=== PATIENT | female | born 1995 | race Caucasian/White ===

== ENCOUNTER 2024-04-17 12:14 | Outpatient (CLI) | payer OTHER, SELFPAY ==
--- NOTE | ~2024-04-17 | XR_ITS ---
EXAMINATION: XR chest 2V 04/17/2024 12:38 INDICATION: Cough PROCEDURE: 2 view chest COMPARISON: 02/08/2018 FINDINGS: The lungs are clear. The cardiomediastinal silhouette is within normal limits. There are no pleural effusions. There is no pneumothorax suspected. IMPRESSION: 1: NO ACUTE CARDIOPULMONARY DISEASE. Reviewed, dictated and finalized at location B.
--- NOTE | ~2024-04-17 | XR_ITS ---
Lumbosacral Spine: AP and lateral views Clinical History: Pain Findings: The normal lordotic curve is maintained. No acute fracture or subluxation seen. There is fariha mbosacral posterior fusion from L5 through S3. There is extensive facet arthropathy and lumbar spine. Disc spaces are preserved. The sacroiliac joints are normally outlined. Impression: Postoperative fusion at the lumbosacral junction region, as above. Facet arthropathy. Reviewed, dictated and finalized at location . Impression: Postoperative fusion at the lumbosacral junction region, as above. Facet arthropathy.
[2024-04-17 13:08] LABS: Add Urine Microscopic? NO; Appearance Urine Clear (Clear); Bilirubin Urine Negative (Negative); Blood Urine Negative (Negative); Color Urine Yellow (Yellow); Glucose Urine UA Negative (Negative); Ketones Urine Negative (Negative); Leukocyte Esterase Ur Negative LEU/UL (Negative); Nitrate Urine Negative (Negative); Protein Urine Negative (Negative); Specific Grav Ur 1.008 (1.001-1.035); Urobilinogen Urine 0.2 mg/dL (<2.0); pH Urine 7.5 (5.0-9.0)
[2024-04-17 13:15] LABS: Hematocrit 43.4 % (37.0-47.0); Hemoglobin 13.9 g/dL (12.0-15.0); Mean Corpuscular Hemoglobin 30.2 pg (26-34); Mean Corpuscular Volume 94.1 fl (80-100); Mean Platelet Volume 10.2 fl (7.4-10.4); Platelet Count Result 240 k/mm3 (150-375); Red Blood Count 4.61 M/mm3 (4.2-5.4); Red Cell Distribution Width 13.7 % (11.5-14.5); White Blood Count 11.3 K/mm3 (4.5-10.0)
[2024-04-17 13:48] LABS: Creatinine Urine 34.7 mg/dL
[2024-04-17 13:55] LABS: MALB Creatinine Ratio < 17.3 mg/g (0-30); Microalbumin Urine Random < 6.0 mg/L (0-16.7)
[2024-04-17 14:06] LABS: Free T4 Free Thyroxine 1.02 ng/mL (0.78-2.19); Vitamin D 25 Hydroxy 29.8 ng/mL
[2024-04-17 14:15] LABS: Erythrocyte Sedimentation Rate 2 mm/hr (0-20)
[2024-04-17 14:32] LABS: Alanine Aminotransferase 18 U/L (6-35); Albumin Level 4.8 g/dL (3.5-5.1); Alkaline Phosphatase 62 U/L (38-126); Anion Gap 8 mmol/L (4-12); Aspartate Amino Transferase 22 U/L (14-36); Bilirubin,Total 0.5 mg/dL (0.2-1.3); Blood Urea Nitrogen 13 mg/dL (7-17); Calcium 9.6 mg/dL (8.4-10.2); Carbon Dioxide 30 mmol/L (22-30); Chloride 101 mmol/L (98-107); Cholesterol 143 mg/dL (0-200); Estimated Glomerular Filt Rate > 60; Glucose 96 mg/dL (65-110); HDL Direct 84 mg/dL; Potassium 3.9 mmol/L (3.4-5.0); Sodium 139 mmol/L (137-145); Triglycerides 61 mg/dL (<150)
[2024-04-17 14:43] LABS: LDL Cholesterol Direct 42 mg/dL
[2024-04-17 14:46] LABS: Rheumatoid Factor < 12.0 IU/ML (<12)
[2024-04-17 15:35] LABS: Folic Acid 19.7 ng/mL (2.76->20)
[2024-04-17 15:53] LABS: Hemoglobin A1C 4.9 % (<5.7)
== END 2024-04-17 12:15 | disposition home or self-care (01) ==
LOC: ANHIMG 12:18
PROVIDERS: PCP Registered Nurse; Visit Provider Emergency Medicine
DX: M54.50 Low back pain, unspecified (principal)
CPT/HCPCS: 36415; 71046; 72100; 80053; 80061; 81003; 82043; 82306; 82607; 82746; 83036; 84439; 84443; 85027; 85652; 86038; 86039; 86430

== ENCOUNTER 2024-05-19 11:09 | Outpatient (CLI) | payer OTHER, SELFPAY ==
[2024-05-19 11:46] LABS: Hemoglobin 12.8 g/dL (12.0-15.0); Mean Corpuscular HGB Conc 32.8 g/dl (32-36); Mean Corpuscular Hemoglobin 30.5 pg (26-34); Mean Corpuscular Volume 93.1 fl (80-100); Platelet Count Result 215 k/mm3 (150-375); Red Blood Count 4.19 M/mm3 (4.2-5.4); Red Cell Distribution Width 13.8 % (11.5-14.5); White Blood Count 8.2 K/mm3 (4.5-10.0)
== END 2024-05-19 11:10 | disposition home or self-care (01) ==
PROVIDERS: PCP Registered Nurse; Visit Provider Emergency Medicine
DX: D72.829 Elevated white blood cell count, unspecified (principal)
CPT/HCPCS: 36415; 85027

== ENCOUNTER 2025-02-25 19:34 | Emergency (ER) | payer OTHER, SELFPAY ==
--- NOTE | ~2025-02-25 | US_ITS ---
EXAMINATION: US OB <= 14 weeks fetus DATE: 02/25/2025 21:39 CDT INDICATION: Abdominal pain COMPARISON: None TECHNIQUE: Real-time transabdominal obstetric ultrasound. FINDINGS: 3 para 2 Estimated date of delivery by last menstrual period is 10/29/2025 The uterus measures 12.8 x 9.4 x 9.4 cm. A gestational sac is identified within the uterus. A pole is identified, with a crown-rump length that measures 3.6 cm, corresponding to an approx imate gestational age of 10 weeks and 4 days. cardiac activity is identified at a rate of 159 bpm. The right ovary is unremarkable in size measuring 3.5 x 1.9 x 2.3 cm. Corpus luteal cyst within the right ovary measuring 12 x 16 x 12 mm. The left ovary is unremarkable in echogenicity and size measuring 2.4 x 1.4 x 1.9 cm. Estimated date of delivery by ultrasound is 09/19/2025 IMPRESSION: Single intrauterine gestation with an approximate gestational age of 10 weeks and 4 days, with cardiac activity identified. Reviewed, dictated and finalized at location A. IMPRESSION: Single intrauterine gestation with an approximate gestational age of 10 weeks a nd 4 days, with cardiac activity identified.
--- OUTSIDE RECORDS SUMMARY | 2025-02-25 19:36 | XMS_ITS | Encounter Summary ---
Author Organization [facility] Address [address] [place] [address] Care Team Providers Care Leak Operator Paraffin Plant Name Role Phone Tucker Jackson MD Primary Care Provider [phone] Encounter Details Date Type Department Care Team (Late Contact Info) Description 02/20/2025 Telephone [facility] IS[address]AC [address] [place] [phone] Victor M Medrano RN Social History Tobacco Use Types Packs/Day Years Used Date Smoking Tobacco: Every Day Cigarettes Alcohol Use Standard Drinks/Week Comments No 0 (1 standard drink = 0.6 oz pur e alcohol) PHQ-2 Answer Date Recorded Patient Health Questionnaire-2 Score 1 06/04/2024 Comments Unknown Sex and Gender Information Value Date Recorded Sex Assigned at Not on file Legal Sex Female 6:10 AM RN EMBEDDED Gender Identity Not on file Sexual Orientation Not on file documented as of this encounter Plan of Treatment Upcoming Encounters Date Type Department Care Team ([facility] Contact Info) Description 03/16/2025 11:00 AM CDT Appointment [facility] EEG/EMG [address] [place] [phone] 05/07/2025 11:30 AM CDT Office Visit [facility] - Neurology [address] [facility] [place] [address] Radha Dodd PA-C [address] [place] [address] documented as of this encounter Visit Diagnoses Not on filedocumented in this encounter Care Teams Leak Operator Paraffin Plant Relationship Specialty Start Date End Date Tucker Jackson MD [address] [place] [id number] PCP - General Family Medicine 01/23/25 documented as of this encounter
--- OUTSIDE RECORDS SUMMARY | 2025-02-25 19:36 | XMS_ITS | Continuity of Care Document ---
Author Organization [facility] Address [address] [place] [address] Phone Care Team Providers Care Technical Sme Name Role Phone Azar Mccabe MD Unavailable Unavailable Advance Directives Directive Yes / No Effective Date File Name No Information Encounters Encounter Description Practice Location Reason(s) For Visit Diagnoses Date Provider Providers Copied on Encounter [facility], [address] [place] [address], [id number], tel:[phone] [facility] No Information [address] [place], [place], [id number] , . tel:[phone] Family History Family Member Type Diagnosis Age At Onset No Information Payers Payer name Insurance type Covered democrat ID Authoriza tion(s) No Information Social History Type Description Quantity Date Captured Comments Sex Female Smoking Status No Information Chief Complaint And Reason For Visit No Information Reason For Referral Reason For Referral No Information History Of Present Illness Encounter Date Complaint History Of Prese nt Illness No Information Functional Status Date Functional Assessmen t No Information Instructions Date Instruction Additional Infor mation No Information Assessments Type Assessment Date No Information Patient Care Teams Name Effective Dates (start - stop) Status Members No Information
--- OUTSIDE RECORDS SUMMARY | 2025-02-25 19:36 | XMS_ITS | CONTINUITY OF CARE DOCUMENT ---
Author Name apolinarsania krissy Address Unknown Organization [facility] Address [id number] [place] [address] [address] [place] [address] Phone [phone] Care Team Providers Care Roster Clerk Name Role Phone Geo Betancourt MD Unavailable TAMIKO DEAN MD Unavailable [phone] TAMIKO DEAN MD Unavailable [phone] PROBLEMS Condition Status Date Provider Notes Chest pain active Geo Betancourt MD Seizure Disorder active Geo Betancourt MD Chronic back pain active Geo Betancourt MD Nicotine dependence active Geo Betancourt MD ENCOUNTERS Date Type Provider Location Encounter Diag nosis - In-person encounter Office Visit Geo Betancourt MD [facility] Chest painSeizure DisorderChronic back painNicotine dependence VITAL SIGNS Date Observation Value Provider Body Mass Index (Ratio) 22.42 kg/m2 Aj Betancourt MD blood pressure, diastolic 60 mm[Hg] Camilla nkLogchristi blood pressure, systolic 108 mm[Hg] Priscilla kLogic height E&M 63 [in_i] Heide Ventimig jose CREATIVE SPECIALIST blood pressure, diastolic 60 mm[Hg] Am loki Ventimiglia CREATIVE SPECIALIST blood pressure, systolic 108 mm[Hg] [place] nda Ventimiglia CREATIVE SPECIALIST oxygen saturation, oximetry 99 % Heide Ventimiglia CREATIVE SPECIALIST respiratory rate E&M 14 /min Heideloki Schustermiglia [facility] pulse rate 83 /min Heideloki Schustermig jose [facility] weight E&M 126.6 [lb_av] Heide Schustermi jeff [facility] SOCIAL HISTORY Date Observation Value Provider personal history of marijuana use yes Heideloki Schustermiglia CREATIVE SPECIALIST drug use no Heideloki Schustermig jose [facility] alcohol use, average drinks per day socia l Heide Schustermiglia [facility] alcohol use yes Heideloki Schustermig jose [facility] chewing tobacco use Current Heide V entimiglia [facility] INSURANCE PROVIDERS Payer name Policy type / Coverage type Saman red constitution party ID [place] MEDICAID (2) Medicaid [id number] TREATMENT PLAN Date Name Performer Cardiology:cessation encouraged Heide Marcusglia [facility] Cardiology:with repo rts of back surgery a bnormal gait associated Heide Marcusglia [facility] Cardiology:currently not following with neurology H ave recommended she call for follow up as directed by her PCP Heide Jones [facility] Cardiology:Has been on and off for several years, but more noticable recently O ccurs with activity like lifting her children and cleaning her house H as some associated SOB and diaphoresis. Given symptoms have recommended stress test. Cannot do routine stress d/t her abnormal/unsteady gait in setting of previous back surgery W ill also do echo to look for any Lv dysfunction or WMA W ill get her labs from PCP Heide Jones [facility] Date Name EKG Stress Regadenoson Complete Echo
--- OUTSIDE RECORDS SUMMARY | 2025-02-25 19:36 | XMS_ITS | Clinical Summary ---
Author Organization [facility] Address [address] [place] [address] Care Team Providers Care Gear Cutter Name Role Phone Tucker Jackson MD Primary Care Provider [phone] Source Comments [facility],non-owned Affiliates and Associated Physician Practices is amultiple site organization consisting of ambulatory clinics and hospital sitesin [place], [place], [place] and [place]. This disclosure is being madepursuant to the Care Everywhere program and may not contain all information available regarding this patient. Last updated 18.[facility] Allergies Active Allergy Reactions Criticality Noted Date Comments Alprazolam Seizures High 06/22/2017 Citalopram Other,Swelling Low 05/05/2013 Levetiracetam Seizures,Unknown High 11/11/2013 Medications * Be aware that medications may not be up to date on this document. Alwaysverify current medications with the patient. FERROUS FUMARATE PO Take 1 tablet by mouth as directed Active lamoTRIgine (LaMICtal) 100 MG tabletIndicatio ns:Seizure disorder (HCC) Take 1 (one) tablet by mouth 2 times daily 180 tablet 3 12/25/2024 Active lamoTRIgine (LaMICtal) 25 MG tabletIndicatio ns:Seizure disorder (HCC) Take 1 (one) tablet by mouth once daily for 14 days, THEN 1 (one) tablet 2 times daily for 14 days, THEN 2 (two) tablets 2 times daily for 14 days, THEN 3 (three) tablets 2 times daily for 14 days. 182 tablet 12/25/2024 Active lacosamide (Vimpat) 50 MG tabletIndicatio ns:Seizure disorder (HCC) Take 1 (one) tablet by mouth 2 times daily 60 tablet 5 02/09/2025 Active Active Problems Problem Noted Date Diagnosed Date Pelvic pain affecting pregna ncy in second trimester, antepartum 06/03/2024 Non-intractable vomiting 06/03/2024 Insufficient care in third trimester High-risk in third trimester Overview (06/03/2024): Enhanced Environmental Operator Diagnoses: 1. Chronic Right renal colic symptom with moderate Hydronephrosis, suspect stone as Cultures negative 2. Insufficient Care. Care in [place] to 20 wks and unable to establish care here until 32 weeks 3. Hx Seizure Disorder. Had medications years ago but none now. Has [facility] Neurologist appt in one month. 4. UDS positive: MJN, Opiods noted due to treatments in L&D for Renal colic with Oxycodone and Morphine 5. Hx with first at 36 weeks. Gu tract infection in , second trimeste r 06/03/2024 Positive urine drug screen 06/03/2024 Renal colic on right side 06/03/2024 Right lower quadrant abdominal pain 06/03/2024 Slow transit constipation 06/03/2024 Threatened premature labor in third trimester Epilepsy affecting 06/03/2024 Overview (06/03/2024): last sz in Sep, focal, ?pseudosz?- getting neuro consult - referral sent 01/24 to [facility] neurology to review and schedule as of 02/11 reviewing to schedule last sz in Sep, focal, ?pseudosz?- getting neuro consult - referral sent 01/24 to [facility] neurology to review and schedule as of 02/11 reviewing to schedule labor in third trimester with de livery 05/05/2021 01/21/2021 Osteoporosis 03/26/2019 Seizure disorder 06/24/2017 Generalized anxiety disorder 06/22/2017 Chronic bilateral low back pain without sciatica 06/22/2017 Encounters Date Type Department Care Team Description 02/20/2025 Travel 02/20/2025 Telephone [facility] ISAAC [address] [place] [phone] Victor M Medrano RN 02/12/2025 Orders Only [facility] - Neurology [address] [place] [phone] Radha Dodd PA-C Seizure disorder (HCC) 02/09/2025 Orders Only [facility] - Neurology [address] [place] [phone] Chantale Rcihards APRN-ELOISA Seizure disorder (HCC) 01/23/2025 10:28 AM CDT - 01/23/2025 11:59 PM CDT Hospital Encounter [facility] EEG/EMG [address] [place] [phone] Unknown, Provider Discharge Disposition: Home or Self Care 01/15/2025 Travel 12/25/2024 Telephone [facility] - Centralized Scheduling [address] [place] [address] Radha Dodd PA-C Medication Issue 12/24/2024 8:00 AM CDT Office Visit [facility] - Neurology [address] [place] [phone] Radha Dodd PA-C Seizure disorder (HCC) (Primary Dx) 12/24/2024 Travel from Last 3 Months Immunizations Immunization Administration Dates Next Due DTP HIB, HISTORIC VACCINE 01/02/1996,1995 HEP B VACCINE, PED/ADOL 01/02/1996,1995 POLIO OPV 01/02/1996,1995 TDAP (7yrs+) 05/07/2021 VARICELLA 05/17/2010,03/29/2010 Social History Tobacco Use Types Packs/Day Years Used Date Smoking Tobacco: Every Day Cigarettes Alcohol Use Standard Drinks/Week Comments No 0 (1 standard drink = 0.6 oz pur e alcohol) PHQ-2 Answer Date Recorded Patient Health Questionnaire-2 Score 1 06/04/2024 Comments Unknown Sex and Gender Information Value Date Recorded Sex Assigned at Not on file Legal Sex Female 6:10 AM SLOT HOST Gender Identity Not on file Sexual Orientation Not on file Last Filed Vital Signs Vital Sign Reading Time Taken Comments Blood Pressure 110/74 12/24/2024 8:02 AM CDT Pulse 82 12/24/2024 8:02 AM CDT Temperature 36.6 C (97.8 F) 11/11/2013 10:30 PM SLOT HOST Respiratory Rate 20 11/11/2013 7:35 PM SLOT HOST Oxygen Saturation 100% 12/24/2024 8:02 AM CDT Inhaled Oxygen Concentration - - Weight 60.8 kg (134 lb) 12/24/2024 8:02 AM CDT Height 160 cm (5' 3) 12/24/2024 8:02 AM CDT Body Mass Index 23.74 12/24/2024 8:02 AM CDT Plan of Treatment Upcoming Encounters Date Type Department Care Team (Late st Contact Info) Description 03/16/2025 11:00 AM CDT Appointment [facility] EEG/EMG [address] [place] [address] 05/07/2025 11:30 AM CDT Office Visit [facility] - Neurology [address] [facility] [place] [address] Radha Dodd PA-C [address] [place] [address] Health Maintenance Due Date Last Done Comments HEPATITIS B VACCINE (3 of 3 - 3-dose series) 02/27/1996 01/02/1996, 1995 HEPATITIS C SCREENING 06/10/2013 PNEUMOCOCCAL VACCINE (1 of 2 - PCV) 2014 PAP SMEAR 2016 COVID-19 VACCINE ( - 2023-2 5 season) 2024 DEPRESSION SCREENING 09/10/2024 06/05/2024 INFLUENZA VACCINE (Season Ended) 2025 DTAP/TDAP/TD VACCINES (4 - T d or Tdap) 05/07/2031 05/07/2021, 01/02/1996, 1995 ZOSTER VACCINE (1 of 2) 2045 HIB VACCINE Aged Out 01/02/1996, 1995 No longer eligible based on patient's age to complete this topic HIV SCREENING Completed 01/21/2021 HPV VACCINE Aged Out No longer eligi ble based on patient's age to complete this topic MENINGOCOCCAL (Group B) VACCINE SHARED DECISION-MAKING Aged Out No longer eligible based on patient's age to complete this topic MENINGOCOCCAL GROUPS A/C/Y/W VACCINE Aged Out No longer eligible b ased on patient's age to complete this topic Procedures Procedure Name Priority Date/Time Associated Diagnosis Comments EEG EXTENDED MONITORING > 1 HOUR Routine 01/23/2025 11:59 PM CDT Seizure disorder (HCC) from Last 3 Months Results * EEG EXTENDED MONITORING > 1 HOUR (01/23/2025 11:59 PM CDT) Narrative Bigg Dwyer MD - 01/23/2025 11:59 PM CDT Bigg Dwyer MD 01/26/2025 11:00 AM EEG REPORT Patient Name: Vladimir Del Rio EEG#: [id number] Start Time: 11:11 AM 01/23/2025 Stop Time: 12:19 AM 01/23/2025 Clinical History: Vladimir Del Rio is a 29 year old female with seizures. This extended EEG is ordered to evaluate for seizures. Current medications Current Outpatient Medications Medication Instructions FERROUS FUMARATE PO 1 tablet, DIRECTED lamoTRIgine (LaMICtal) 25 MG tablet Take 1 (one) tablet by mouth once daily for 14 days, THEN 1 (one) tablet 2 times daily for 14 days, THEN 2 (two) tablets 2 times daily for 14 days, THEN 3 (three) tablets 2 times daily for 14 days. lamoTRIgine (LAMICTAL) 100 mg, Oral, 2 TIMES DAILY Description This is an extended, greater than 1-hour, 21-channel EEG tracing consisting of 20 channels of EEG obtained from electrodes placed on the scalp according to the international 10-20 system, T1 and T2 electrodes, and one channel of EKG monitoring. Background The awake background consisted of a posterior dominant rhythm up to 9 Hz and predominantly normal microvolts in amplitude. Drowsiness was identified in the form of eye roving and decreased myogenic artifacts. Sharply contoured bilateral slowing lasting 30 seconds of unknown significance during drowsiness, not disruptive to the background. Hyperventilation stimulation were performed and elicited no abnormalities. EKG was observed throughout the recording. IMPRESSION This is a normal extended EEG. Sharply contoured bilateral slowing lasting 30 seconds of unknown significance during drowsiness, not disruptive to the background. Tiarra Tapia MD Neurology Resident us Radha Dodd PA-C NEUROLOGY ORDERABLES Britney berman Result from Last [address] [place] [address] [facility] [place] [address] [address] [place] [address] [place] [address] [address] HEALTH PLAN Care Teams Gear Cutter Relationship Specialty Start Date End Date Tucker Jackson MD [facility] [address] [address] PCP - General Family Medicine 01/23/25
--- OUTSIDE RECORDS SUMMARY | 2025-02-25 19:37 | XMS_ITS | Encounter Summary ---
Author Organization [facility] Healthcare Address [address] [place] [address] Care Team Providers Care Last Marker Name Role Phone Tucker Jackson MD Primary Care Provider [phone] Reason for Visit * Reason Comments Abdominal Pain Nausea Vomiting Seizures Encounter Details Date Type Department Care Team (Late st Contact Info) Description 02/25/2025 1:58 AM CDT - 02/25/2025 4:34 AM CDT Emergency [facility] Emergency Department [address] [place] [address] Brian Hopper, DO [address] [place] [address] Seizure (HCC) (Primary Dx); Nausea and vomiting, unspecified vomiting type; Less than 8 weeks gestation of ; Acute pancreatitis, unspecified complication status, unspecified pancreatitis type Discharge Disposition: Discharge to home or self care Social History Tobacco Use Types Packs/Day Years Used Date Smoking Tobacco: Never Assessed Personal Safety Answer Date Recorded Have you ever been in or are you currently in a harmful physical or emotional relationship or is someone making you feel afraid or unsafe? 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 Gender Identity Not on file Sexual Orientation Not on file documented as of this encounter Last Filed Vital Signs Vital Sign Reading Time Taken Comments Blood Pressure 105/67 02/25/2025 4:30 AM CDT Pulse 73 02/25/2025 4:30 AM CDT Temperature 36.7 C (98 F) 02/25/2025 2:03 AM CDT Respiratory Rate 25 02/25/2025 4:30 AM CDT Oxygen Saturation 100% 02/25/2025 4:30 AM CDT Inhaled Oxygen Concentration - - Weight 67.3 kg (148 lb 5.9 oz) 02/25/2025 2:03 A M CDT Height 167.6 cm (5' 6) 02/25/2025 2:03 AM CDT Body Mass Index 23.95 02/25/2025 2:03 AM CDT documented in this encounter Discharge Instructions * Attachments The following attachments cannot be sent through Care Everywhere. * Pancreatitis (Discharge Care) (Togolese) documented in this encounter Medications at Time of Discharge ondansetron ODT (ZOFRAN-ODT) 4 mg disintegrating tablet Take 1 tablet (4 mg total) by mouth every 4 (four) hours as needed for nausea 20 tablet 02/25/2025 PNV with muzzpik-gsju-FK 27 mg iron- 1 mg tablet Take 1 tablet by mouth daily 90 tablet 02/25/2025 documented as of this encounter Ordered Prescriptions Prescription Sig Dispense Quantity Refills Last Filled Start Date End Date PNV with caeyvip-xisw-OU 27 mg iron- 1 mg tablet Take 1 tablet by mouth daily 90 tablet 02/25/2025 ondansetron ODT (ZOFRAN-ODT) 4 mg disintegrating tablet Take 1 tablet (4 mg total) by mouth every 4 (four) hours as needed for nausea 20 tablet 02/25/2025 documented in this encounter Discharge Disposition Disposition Code Departure Means Destination Comment s Discharge to home or self care documented in this encounter ED Notes * Brian Hopper DO - 02/25/2025 3:00 AM CDTAssociated Order(s): ECG 12 lead HPI Chief Complaint Patient presents with ??? Abdominal Pain ??? Nausea ??? Vomiting ??? Seizures Quita Del Rio is a 29 y.o. female w/ PMHx including absent seizures, IBS, and other PMHx as below presenting to the ED for evaluation of multiple medical complaints. Per EMS, pt arrives to the EDc/o abdominal pain, nausea, and vomiting. Pt also reportedly had 8 seizures each lasting approximately 10-30 seconds in length BOTTOM POLISHER. Pt states she's no longer taking lamictal due to side effects of itchy arms and vomiting. Pt states she's also no longer taking lacosamide, reports same symptoms butworse. Pt notes she recently had an EEG and an MRI. Pt confirms she had multiple seizures today, states she's conscious most of the time and is able to remember them. Pt describes these seizures as feeling weak, confused, and if she doesn't know what's going on. Pt also notes of an aura, states like a different feeling in my brain. Pt notes these episodes last 10-30 seconds each episode. Pt is also currently c/o abdominal pain, states she had nausea/vomiting earlier BOTTOM POLISHER. Pt also notes of some constipation. Of note, pt was found to be in the ED, states that she wasn't aware she was beforehand. Pt's last menstrual cycle was the 16th of last month. Pt denies any other symptoms. Pt has no other acute complaints. 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 Ho, doesn't currently have one. History provided by: Patient, medical records and EMS personnel Patient History: No past medical history on file. No past surgical history on file. No family history on file. Social History Tobacco Use ??? Smoking status: Not on file ??? Smokeless tobacco: Not on file Substance and Sexual Activity ??? Drug use: Not on file ??? Sexual activity: Not on file Alcohol Use: Not on file No current facility-administered medications for this encounter. Current Outpatient Medications: ??? ondansetron ODT (ZOFRAN-ODT) 4 mg disintegrating tablet ??? PNV with fedwyhl-oceh-MD 27 mg iron- 1 mg tablet Review of Systems Review of Systems Gastrointestinal: Positive for abdominal pain, nausea and vomiting. Neurological: Positive for seizures. All systems reviewed and are negative or noncontributory for this patients presentation today otherthan as stated in the HPI . Physical Exam ED Triage Vitals [02/25/25 0203] Temp Pulse Resp BP SpO2 36.7 ??C (98 ??F) 95 20 111/66 99 % Temp src Heart Rate Source Patient Position BP Location FiO2 (%) Oral -- -- -- -- Height Height Method Weight Weight Method 1.676 m (5' 6) Stated 67.3 kg (148 lb 5.9 oz) Bed scale Physical Exam Vitals and nursing note reviewed. Constitutional: General: She is not in acute distress. Appearance: Normal appearance. She is not ill-appearing. Comments: Pt is anxious. HENT: Head: Normocephalic and atraumatic. Right Ear: External ear normal. Left Ear: External ear normal. Nose: Nose normal. Eyes: Extraocular Movements: Extraocular movements intact. Conjunctiva/sclera: Conjunctivae normal. Pupils: Pupils are equal, round, and reactive to light. Cardiovascular: Rate and Rhythm: Normal rate and regular rhythm. Pulmonary: Effort: Pulmonary effort is normal. No respiratory distress. Abdominal: General: Abdomen is flat. There is no distension. Tenderness: There is no abdominal tenderness. There is no guarding or rebound. Genitourinary: Comments: Mild epigastric tenderness to palpation. Musculoskeletal: General: Normal range of motion. Cervical back: Normal range of motion and neck supple. Skin: General: Skin is warm and dry. Neurological: General: No focal deficit present. Mental Status: She is alert and oriented to person, place, and time. Psychiatric: Behavior: Behavior normal. ECG 12 lead Date/Time: 02/25/2025 3:07 AM Performed by: Eddie Tran Authorized by: Brian Hopper DO Rate: ECG rate: 67 ECG rate assessment: normal Rhythm: Rhythm: sinus rhythm Ectopy: Ectopy: none QRS: QRS axis: Normal Conduction: Conduction: normal ST segments: ST segments: Normal T waves: T waves: normal Interpretation: Interpretation: normal MDM Labs Reviewed URINALYSIS AND REFLEX TO MICROSCOPIC AND CULTURE - Abnormal Result Value Color, ur Yellow Clarity, ur Cloudy (*) Specific gravity, ur 1.031 (*) pH, urine 6.5 Protein, ur ql 1+ (*) Glucose, ur ql Negative Ketones, ur 2+ (*) Bilirubin, ur Negative Blood, ur Negative Urobilinogen, ur <2.0 Nitrite, ur Negative Leukocyte esterase, ur 4+ (*) UA reflex comment Reflex to microscopic UA will be performed. CBC WITH AUTO DIFFERENTIAL - Abnormal WBC 14.80 (*) Hgb 12.4 Hct 36.5 Plt 217 MPV 10.5 RBC 4.09 MCV 89.2 MCH 30.3 MCHC 34.0 RDW CV 13.4 RDW SD 43.8 NRBC abs 0.00 COMPREHENSIVE METABOLIC PANEL - Abnormal Sodium 138 Potassium, pl 3.8 Chloride 101 CO2 24 Anion gap 13 BUN 11 Creatinine 0.52 (*) Glucose 124 Calcium 9.2 Bilirubin, total 0.2 Protein, pl 7.1 Albumin 4.2 Alk phos 52 ALT 15 AST 15 LIPASE - Abnormal Lipase 229 (*) DIFFERENTIAL AUTO - Abnormal Neutrophil abs 13.19 (*) Imm gran abs 0.09 Lymphocyte abs 1.03 Monocyte abs 0.41 Eosinophil abs 0.04 Basophil abs 0.04 Neutrophil pct 89.0 Imm gran pct 0.6 Lymphocyte pct 7.0 Monocyte pct 2.8 Eosinophil pct 0.3 Basophil pct 0.3 POCT HCG, URINE - Abnormal HCG, ur, POC Positive (*) Lot Number [id number] QC Backgroud Clear Acceptable QC Control Line Acceptable LACTATE Lactate 1.5 EGFR eGFR >90 URINALYSIS, MICROSCOPIC ONLY POCT GLUCOSE DEVICE Glucose, POC 118 No orders to display BP 103/66 Pulse 73 Temp 36.7 ??C (98 ??F) (Oral) Resp 21 Ht 167.6 cm (5' 6) Wt 67.3 kg (148 lb 5.9 oz) LMP 01/23/2025 SpO2 98% Unknown BMI 23.95 kg/m?? MDM Pt given IVF and zofran and feeling better - found out she was -- was 2 days late for her period- probably 2 weeks . ED Course as of 02/25/25 0412 Time: 02/25 0408 Comment: Pt has been informed of lab and scan findings. Pt may be discharged. Pt was advised to noteat fried/fatty foods. Pt will be given a referral to f/u w/ SILK SCREEN ETCHER. Pt understands to follow up w/SILK SCREEN ETCHER. Pt agreeable w/ disposition. By: Eddie Tran Clinical Impression: Seizure (HCC) Nausea and vomiting, unspecified vomiting type Less than 8 weeks gestation of Acute pancreatitis, unspecified complication status, unspecified pancreatitis type This note was prepared by Eddie Tran, acting as a Scribe for Brian Hopper DO. I electronically signed this note at 4:09 AM on 02/25/2025. I, Brian Hopper DO, personally performed the services described in this documentation, reviewedand edited the documentation which was dictated to the scribe in my presence, and it accurately records my words and actions. Brian Hopper DO 02/25/25 0411 * Matilde Whyte RN - 02/25/2025 2:00 AM CDT Pt to ER per EMS w/abdominal pain, nausea and vomiting. Hx of epilepsy and states she had 8 focal seizures lasting 30 seconds. Pt denies pain now. States I just feel stiff. documented in this encounter Plan of Treatment Pending Results Name Type Priority Associated Diagnoses Date /Time ECG 12 lead ECG STAT 02/25/2025 4: 11 AM CDT Urine culture Urine Microbiology STAT 2:43 AM CDT Scheduled Orders Name Type Priority Associated Diagnoses Orde r Schedule Urine culture Microbiology STAT Once for 1 Occurrences starting 02/25/2025 until 02/25/2025 documented as of this encounter Procedures Procedure Name Priority Date/Time Associated Diagnosis Comments ECG 12-LEAD STAT 02/25/2025 4:11 AM CDT URINALYSIS AND REFLEX TO MICROSCOPIC AND CULTURE STAT 02/25/2025 2:43 AM CDT URINALYSIS, MICROSCOPIC ONLY STAT 02/25/2025 2:43 AM CDT POCT HCG, URINE Routine 02/25/2025 2:27 AM CDT LACTATE STAT 02/25/2025 2:17 AM CDT EGFR STAT 02/25/2025 2:17 AM CDT DIFFERENTIAL AUTO STAT 02/25/2025 2:1 7 AM CDT CBC WITH AUTO DIFFERENTIAL STAT 02/25/2025 2:17 AM CDT LIPASE STAT 02/25/2025 2:17 AM CDT COMPREHENSIVE METABOLIC PANEL STAT 02/25/2025 2:17 AM CDT POCT GLUCOSE DEVICE Routine 02/25/2025 2 :03 AM CDT documented in this encounter Results * (ABNORMAL) Urinalysis, microscopic only (02/25/2025 2:43 AM CDT) WBC, ur 21-50(A) 0 - 5 /HPF Comment:Testing performed by : [facility], [address] [place] [address]., [address] RBC, ur 0-2 0 - 2 /HPF [facility]A Comment:Testing performed by : [address] [address] Epithelial cells, squamous, ur >50(A) 0 - 5 /HPF [facility]A Comment:Testing performed by : [address] [address] Mucous, ur Present(A) LAILA Comment:Testing performed by : [address] [address] Culture Reflex Comment Reflex to urine culture will be performed. LAILA Comment:Testing performed by : [address] [address] Urine 02/25/2025 2:43 AM CDT 02/25/2025 2:46 AM CDT us Brian Hopper DO LAB URINE ORDERABLES Final Res ult LAILA HARMON [address] [facility] Department [place] [address] * (ABNORMAL) Urinalysis reflex to microscopic and culture Urine (02/25/2025 2:43 AM CDT) Color, ur Yellow Yellow Comment:Testing performed by : [address] [address] Clarity, ur Cloudy(A) Clear LAILA Comment:Testing performed by : [address] [address] Specific gravity, ur 1.031(H) 1.003 - 1.030 LAILA Comment:Testing performed by : [address] [address] pH, urine 6.5 LAILA Comment: Interpretive Data U rine pH is affected by diet, medications, systemic acid-base disturbances, and renal tubular function. pH may affect urinary stone formation. For example, urine pH below 6.0 may help reduce the tendency for calcium phosphate stones and pH greater than 6.0 may reduce the tendency for uric acid stone formation. Source: [facility] COM DEV Current Interpretive Data was last revised on 2017 Testing performed by: [address] [address] Protein, ur ql 1+(A) Negative LAILA Comment:Testing performed by : [address] [address] Glucose, ur ql Negative Negative LAILA Comment:Testing performed by : [address] [address] Ketones, ur 2+(A) Negative LAILA Comment:Testing performed by : [address] [address] Bilirubin, ur Negative Negative LA[facility]A Comment:Testing performed by : [address] [address] Blood, ur Negative Negative [facility]A Comment:Testing performed by : [address] [address] Urobilinogen, ur <2.0 <2.0 mg/dL LA[facility]A Comment:Testing performed by : [address] [address] Nitrite, ur Negative Negative [facility]A Comment:Testing performed by : [address] [address] Leukocyte esterase, ur 4+(A) Negative LAILA Comment:Testing performed by : [address], [place]., [address] UA reflex comment Reflex to microscopic UA will be performed. [facility] HARMON Comment:Testing performed by : [facility], [address] [place] [address]., [address] Urine 02/25/2025 2:43 AM CDT 02/25/2025 2:46 AM CDT Sanivationlatasha Hopper DO LAB MICROBIOLOGY - GENERAL ORD ERABLES Final Result [facility]A HARMON [address] [place] [facility] Department [place] [address] * (ABNORMAL) POCT hCG, urine (02/25/2025 2:27 AM CDT) HCG, ur, POC Positive(A) Negative Lot Number [id number] QC Backgroud Clear Acceptable QC Control Line Acceptable Urine 02/25/2025 2:27 AM CDT [employer] ESPINAL POINT OF CARE TEST ORDERABLES Final Result * eGFR (02/25/2025 2:17 AM CDT) eGFR >90 >=60 mL/min/1. 73 m2 Comment: Interpretive Data Reference Interval Normal >/= 90 mL/min/1.73m2 Mildly decreased* 60 - 89 mL/min/1.73m2 Mildly to moderately decreased 45 - 59 mL/min/1.73m2 Moderately to severely decreased 30 - 44 mL/min/1.73m2 Severely decreased 15 - 29 mL/min/1.73m2 Kidney Failure < 15 mL/min/1.73m2 *Relative to young adult level Estimated glomerular filtration rate is determined by the 2020 CKD-EPI equation recommended by the National Kidney Foundation (A Unifying Approach to GFR Estimation: Recommendations of the NKF-ASK Task Force on Reassessing the Inclusion of Race in Diagnosing Kidney Disease, JASN 2020). The CKD-EPI equation should not be used for patients with unstable renal function and has not been validated in children and those over 70. Current interpretive data was last reviewed 2021. Testing performed by: [address] [address] Blood 02/25/2025 2:17 AM CDT 02/25/2025 2:23 AM CDT us Brian Ward ESPINAL LAB BLOOD ORDERABLES Final Res ult [facility] [address] [place] [facility] Department [place] [address] * (ABNORMAL) Differential, auto (02/25/2025 2:17 AM CDT) Neutrophil abs 13.19(H) 1.50 - 6.50 K/cumm Comment:Testing performed by : [address] [address] Imm gran abs 0.09 0.00 - 0.10 K/cumm LAILA Comment:Testing performed by : [address] [address] Lymphocyte abs 1.03 0.80 - 3.30 K/cumm LAILA Comment:Testing performed by : [address] [address] Monocyte abs 0.41 0.20 - 0.80 K/cumm LAILA Comment:Testing performed by : [address] [address] Eosinophil abs 0.04 0.00 - 0.50 K/cumm LAILA Comment:Testing performed by : [address] [address] Basophil abs 0.04 0.00 - 0.10 K/cumm LAILA Comment:Testing performed by : [address] [address] Neutrophil pct 89.0 % LAILA Comment: Interpretive Data Percent cell count reference ranges are not reported, since discordance with absolute values may lead to misinterpretation of CBC data. Current Interpretive Data was last revised on 2017. Testing performed by: [address] [address] Imm gran pct 0.6 % [facility] Comment: Interpretive Data Percent cell count reference ranges are not reported, since discordance with absolute values may lead to misinterpretation of CBC data. Current Interpretive Data was last revised on 2017. Testing performed by: [address] [address] Lymphocyte pct 7.0 % [facility] Comment: Interpretive Data Percent cell count reference ranges are not reported, since discordance with absolute values may lead to misinterpretation of CBC data. Current Interpretive Data was last revised on 2017. Testing performed by: [address] [address] Monocyte pct 2.8 % [facility] Comment: Interpretive Data Percent cell count reference ranges are not reported, since discordance with absolute values may lead to misinterpretation of CBC data. Current Interpretive Data was last revised on 2017. Testing performed by: [address] [address] Eosinophil pct 0.3 % [facility] Comment: Interpretive Data Percent cell count reference ranges are not reported, since discordance with absolute values may lead to misinterpretation of CBC data. Current Interpretive Data was last revised on 2017. Testing performed by: [address] [address] Basophil pct 0.3 % [facility] Comment: Interpretive Data Percent cell count reference ranges are not reported, since discordance with absolute values may lead to misinterpretation of CBC data. Current Interpretive Data was last revised on 2017. Testing performed by: [address] [address] Blood 02/25/2025 2:17 AM CDT 02/25/2025 2:22 AM CDT us Brian Hopper DO LAB BLOOD ORDERABLES Final Res ult LAILA HARMON [address] [facility] Department [place] [address] * (ABNORMAL) Lipase (02/25/2025 2:17 AM CDT) [facility] Lipase 229(H) 10 - 99 Units/L Comment:Testing performed by : [address] [address] Blood 02/25/2025 2:17 AM CDT 02/25/2025 2:23 AM CDT [employer] DO LAB BLOOD ORDERABLES Final Res ult Performing Organization Address [facility] Co de Phone Number [address] [place] [address] * Lactate (02/25/2025 2:17 AM CDT) [facility] Lactate 1.5 0.7 - 2.0 mmol/L Comment:Testing performed by : [address] [address] Blood 02/25/2025 2:17 AM CDT 02/25/2025 2:22 AM CDT Brian Hopper DO LAB BLOOD ORDERABLES Final Res ult Performing Organization Address [facility] de Phone Number [address] [place] [address] * (ABNORMAL) Comprehensive metabolic panel (02/25/2025 2:17 AM CDT) [facility] Sodium 138 135 - 145 mmol/L Comment:Testing performed by : [address] [address] Potassium, pl 3.8 3.3 - 4.9 mmol/L LAILA Comment:Testing performed by : [address] [address] Chloride 101 97 - 110 mmol/L LAILA Comment:Testing performed by : [address] [address] CO2 24 22 - 32 mmol/L LAILA Comment:Testing performed by : [address] [address] Anion gap 13 2 - 15 mmol/L LA[facility]A Comment:Testing performed by : [address] [address] BUN 11 6 - 25 mg/dL [facility]A Comment:Testing performed by : [address] [address] Creatinine 0.52(L) 0.60 - 1.10 mg/dL [facility]A Comment:Testing performed by : [address] [address] Glucose 124 70 - 199 mg/dL LAILA Comment: Interpretive Data Fasting glucose >/= 126 mg/dl is diagnostic for diabetes. Fasting is defined as no caloric intake for at least 8 hours. Fasting glucose between 100 mg/dl to 125 mg/dl is diagnostic of prediabetes. In a patient with classic symptoms of hyperglycemia or hyperglycemic crisis, a random glucose >/= 200 mg/dl is diagnostic for diabetes. In the absence of unequivocal hyperglycemia, results should be confirmed by repeat testing. The classification and Diagnosis of Diabetes Diabetes Care 202; 46: S19-S40. Current interpretive data was last revised 2022. Testing performed by: [address] [address] Calcium 9.2 8.5 - 10.3 mg/dL LAILA Comment:Testing performed by : [address] [address] Bilirubin, total 0.2 0.1 - 1.2 mg/dL LA[facility]A Comment:Testing performed by : [address] [address] Protein, pl 7.1 6.5 - 8.5 g/dL LA[facility]A Comment:Testing performed by : [address] [address] Albumin 4.2 3.5 - 5.0 g/dL [facility]A Comment:Testing performed by : [address] [address] Alk phos 52 40 - 130 Units/L LA[facility]A Comment:Testing performed by : [address] [address] ALT 15 7 - 45 Units/L [facility]A Comment:Testing performed by : [address] [address] AST 15 10 - 45 Units/L [facility]A Comment:Testing performed by : [address] [address] Blood 02/25/2025 2:17 AM CDT 02/25/2025 2:23 AM CDT Brian Hopper DO LAB BLOOD ORDERABLES Final Res ult [facility] [address] [facility] Department [place] [address] * (ABNORMAL) CBC with auto differential (02/25/2025 2:17 AM CDT) WBC 14.80(H) 3.80 - 9.90 K/cumm Comment:Testing performed by : [address] [address] Hgb 12.4 11.9 - 15.5 g/dL LAILA Comment:Testing performed by : [address] [address] Hct 36.5 35.6 - 45.5 % [facility]ILA Comment:Testing performed by : [address] [address] Plt 217 150 - 400 K/cumm LAILA Comment:Testing performed by : [address] [address] MPV 10.5 9.1 - 12.3 fL [facility]A Comment:Testing performed by : [address] [address] RBC 4.09 3.90 - 5.20 M/cumm [facility]A HARMON Comment:Testing performed by : [address] [address] MCV 89.2 81.3 - 96.4 fL [facility] HARMON Comment:Testing performed by : [address] [address] MCH 30.3 27.1 - 33.3 pg [facility]A HARMON Comment:Testing performed by : [address] [address] MCHC 34.0 32.3 - 35.7 g/dL [facility]A HARMON Comment:Testing performed by : [address] [address] RDW CV 13.4 11.1 - 14.9 % LA[facility]A HARMON Comment:Testing performed by : [address] [address] RDW SD 43.8 35.7 - 48.1 fL [facility]A HARMON Comment:Testing performed by : [address] [address] NRBC abs 0.00 0.00 - 0.01 K/cumm LA[facility]A HARMON Comment:Testing performed by : [address] [address] Blood 02/25/2025 2:17 AM CDT 02/25/2025 2:22 AM CDT Brian Hopper DO LAB BLOOD ORDERABLES Final Res ult Performing Organization Address [facility] Co de Phone Number LAILA [address] [place] [address] * POCT glucose (02/25/2025 2:03 AM CDT) [facility] Signature Glucose, POC 118 70 - 199 mg/dL Comment:Testing performed by : [address] [address] Blood 02/25/2025 2:03 AM CDT 02/25/2025 2:03 AM CDT us [employer] Unknown LAB POCT ORDERABLES - DEVICE F inal Result Performing Organization Address [facility] Co de Phone Number LAIL[facility] [place] [address] documented in this encounter Visit Diagnoses Diagnosis Seizure (HCC)- Primary Other convulsions Nausea and vomiting, unspecified vomiting type Less than 8 weeks gestation of Acute pancreatitis, unspecified complication status, unspecified pancreatitis type documented in this encounter Administered Medications Inactive Administered Medications - up to 3 most recent administrations Medication Order MAR Action Action Date Dose Rate Site acetaminophen (TYLENOL) tablet 650 mg 650 mg, oral, Once, On Sun02/25/25 at 0255, For 1 dose Given 02/25/2025 3:26 AM CDT 650 mg ondansetron (ZOFRAN) injection 4 mg 4 mg, intravenous, Administer over 2 Minutes, Once, On Sun02/25/25 at 0209, For 1 dose Given 02/25/2025 2:21 AM CDT 4 mg sodium chloride 0.9% bolus 1,000 mL 1,000 mL, intravenous, Once, On Sun02/25/25 at 0209, For 1 dose New Bag 02/25/2025 2:29 AM CDT 1,000 mL documented in this encounter Active and Recently Administered Medications Times are shown in CDT. Scheduled Medication Order 02/23/2025 02/24/2025 02/25/2025 acetaminophen (TYLENOL) tablet 650 mg (COMPLETED) 650 mg, oral, Once, On Sun02/25/25 at 0255, For 1 dose 0326 (Given - Provid er: Tammy Ann) ondansetron (ZOFRAN) injection 4 mg (COMPLETED) 4 mg, intravenous, Administer over 2 Minutes, Once, On Sun02/25/25 at 0209, For 1 dose 0221 (Given - Provid er: Rhonalwayne Macabrianna) sodium chloride 0.9% bolus 1,000 mL (COMPLETED) 1,000 mL, intravenous, Once, On Sun02/25/25 at 0209, For 1 dose 0229 (New Bag - Prov ider: Tammy Ann)[id number] (Stopped - Provider: Tammy Ann) documented in this encounter Orders Medications Ordered That Geraldo ht Not Have Been Administered Count Last Ordered Date First Ordered Date ketorolac (TORADOL) 30 mg/mL injection 30 mg 1 02/25/2025 documented in this encounter Care Teams Last Marker Relationship Specialty Start Date End Date Tucker Jackson MD [address] [place] [id number] PCP - General Emergency Medicine 12/27/24 documented as of this encounter
--- OUTSIDE RECORDS SUMMARY | 2025-02-25 19:37 | XMS_ITS | Patient Health Record ---
Author Organization [facility] Address [address] [facility] [address] [facility] [place] [address] Care Team Providers Care Cage Manager Name Role Phone TeRoula mckenzie Primary Care Provider Giovany Bishop [phone] Allergies Allergen (clinical drug ingredient) Drug/Non Drug Allergy documented on EMR Reaction Allergy Type Onset Date Status citalopram Citalopram Hydrobromide Unknown Drug Allergy Active levetiracetam Keppra Unknown Drug Allergy Act enedina alprazolam Xanax Unknown Drug Allergy Active Reason For Referral No Information Medications Medication SIG (Take, Route, Frequency, Duration) Notes Start Date End Date Status Ranitidine HCl 150 MG 1 tablet at bedtim e Orally Once a day for 30 day(s) 05/10/2016 Not-Duong ing Folic Acid 0.8 MG 1 capsule Orally Onc e a day Active Singulair 10 MG 1 tablet in the even ing Orally Once a day for 30 day(s) 05/10/2016 Not-Taking Social History Tobacco Use: Social History Observation Description Date Details (start date - stop date) Former Smoker NA - NA Tobacco Use/Smoking Question Answer Notes Are you a former smoker How long has it been since you last smoked? < 1 month Alcohol Screen (Audit-C) Question Answer Notes Did you have a drink containing alcohol in the p ast year? No Points 0 Interpretation Negative Problems Problem Type SNOMED Code ICD Code Onset Dates Problem Status W/U Status Risk Notes Problem 82226246 Heartburn (R12) Active confirmed Problem 14922250 Amenorrhea (N91.2) Active confirmed Problem 657189337 Seizure disorder (G40.909) Active confirmed Problem 62707347 Allergic rhinitis, unspecified allergic rhinitis trigger, unspecified rhinitis seasonality (J30.9) Active confirmed Plan Of Treatment No Information Insurance Providers Payer Name Payer Address Payer Phone Subscriber Number Group Number Insured Name Patient Relationship to Insured Coverage Start Date Coverage End Date Kayleigh Alvarez [id number] Rodo ANTONIO [id number] [place] Self - patient is the insured 6 Medicaid FQ[employer] Second to Non [facility] [address] [place], [place] [id number] [place] Self - patient is the insured 6 Medicaid Nonbillable [address], [place] [id number] [place] Self - patient is the insured 6 Medical (General) History Medical History History ICD Code Seizures Surgical History Surgery Date(Month/Year) Back surgery 2007 Hospitalization History Reason Date(Month/Year) for surgery
--- OUTSIDE RECORDS SUMMARY | 2025-02-25 19:37 | XMS_ITS | Continuity of Care Document ---
Author Organization [facility] Address [address] [place] [address] Phone Care Team Providers Care Java J2Ee Application Developer Name Role Phone Unavailable Unavailable Unavailable Advance Directives Directive Yes / No Effective Date File Name No Information Encounters Encounter Description Practice Location Reason(s) For Visit Diagnoses Date Provider Providers Copied on Encounter [facility], [address] [facility], [place], [place], [id number], [place] tel:[phone] [facility] No Information No Information Referring Provider: RENU Aguirre, [address], [place], [address]. tel:[phone] Family History Family Member Type Diagnosis Age At Onset No Information Payers Payer name Insurance type Covered constitution party ID Authoriza tion(s) No Information Social History Type Description Quantity Date Captured Comments Sex Female Smoking Status No Information Chief Complaint And Reason For Visit No Information History Of Present Illness Encounter Date Complaint History Of Prese nt Illness No Information Instructions Date Instruction Additional Infor mation No Information Assessments Type Assessment Date No Information
--- OUTSIDE RECORDS SUMMARY | 2025-02-25 19:37 | XMS_ITS | Clinical Summary ---
Author Organization [facility] Address [address] [place] [id number] Care Team Providers Care Calender Operator Helper Name Role Phone Tucker Jackson MD Primary Care Provider [phone] Allergies Active Allergy Reactions Criticality Noted Date Comments Levetiracetam Seizures High 02/25/2025 Medications ondansetron ODT (ZOFRAN-ODT) 4 mg disintegrating tablet Take 1 tablet (4 mg total) by mouth every 4 (four) hours as needed for nausea 20 tablet 5 Active PNV with [id number] 27 mg iron- 1 mg tablet Take 1 tablet by mouth daily 90 tablet 5 Active Encounters Date Type Department Care Team Description 02/25/2025 1:58 AM CDT - 02/25/2025 4:34 AM CDT Emergency [facility] Emergency Department [address] [place] [id number] Brian Hopper DO Seizure (HCC) (Primary Dx); Nausea and vomiting, unspecified vomiting type; Less than 8 weeks gestation of ; Acute pancreatitis, unspecified complication status, unspecified pancreatitis type Discharge Disposition: Discharge to home or self care 01/30/2025 5:45 PM CDT - 01/30/2025 11:59 PM CDT Hospital Encounter [facility] MRI [address] [place] [id number] Seizure disorder (HCC) Discharge Disposition: Discharge to home or self care from Last 3 Months Social History Tobacco Use Types Packs/Day Years [...] on file 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 Gender Identity Not on file Sexual Orientation Not on file Obstetrics History Para Term AB IAB SAB Ectopic Multiple Livin g Live Births 1 Date Outcome GA Total Labor Labor/2nd/3rd Weight Sex Type Anes PTL Karen A1 A5 Name Clin Last Filed Vital Signs Vital Sign Reading [...] Mass Index 23.95 02/25/2025 2:03 AM CDT Plan of Treatment Health Maintenance Due Date Last Done Comments Cervical Cancer Screening 1995 Depression Screening 1995 Hepatitis C Screening 1995 Regular Well Visit/Exam 18-64 2013 Influenza Vaccine (Season Ended) 2025 DTaP/Tdap/Td Vaccine (4 - Td or Tdap) 05/07/2031 05/07/2021, 01/02/1996, 1995 Hepatitis B Screening Completed 01/02/1996 , 1995 Varicella Vaccines Completed 05/17/2010, 03/29/2010 HPV Vaccines Aged Out No longer eligi ble based on patient's age to complete this topic Pneumococcal vaccine <65 Aged Out No longer eligible based on patient's age to complete this topic Procedures Procedure Name Priority Date/Time Associated Diagnosis Comments ECG 12-LEAD STAT 02/25/2025 4:11 AM CDT URINALYSIS, MICROSCOPIC ONLY STAT 02/25/2025 2:43 AM CDT URINALYSIS AND REFLEX TO MICROSCOPIC AND CULTURE STAT 02/25/2025 2:43 AM CDT POCT HCG, URINE Routine 02/25/2025 2:27 AM CDT EGFR STAT 02/25/2025 2:17 AM CDT DIFFERENTIAL AUTO STAT 02/25/2025 2:1 7 AM CDT LIPASE STAT 02/25/2025 2:17 AM CDT LACTATE STAT 02/25/2025 2:17 AM CDT COMPREHENSIVE METABOLIC PANEL STAT 02/25/2025 2:17 AM CDT CBC WITH AUTO DIFFERENTIAL STAT 02/25/2025 2:17 AM CDT POCT GLUCOSE DEVICE Routine 02/25/2025 2 :03 AM CDT MRI BRAIN WO CONTRAST Schedule Routine, Read Routine (OP Routine) 01/30/2025 7:23 PM CDT Seizure disorder (HCC) from Last 3 Months Results * (ABNORMAL) Urinalysis reflex to microscopic and culture Urine (02/25/2025 2:43 AM CDT) Color, ur Yellow Yellow Comment:Testing performed by : [address] [address] Clarity, ur Cloudy(A) Clear LAILA Comment:Testing performed by : [address] [address] Specific gravity, ur 1.031(H) 1.003 - 1.030 LAILA Comment:Testing performed by : [address] [address] pH, urine 6.5 LAILA Comment: Interpretive Data U rine pH is affected by diet, medications, systemic acid-base disturbances, and renal tubular function. pH may affect urinary stone formation. For example, urine pH below 6.0 may help reduce the tendency for calcium phosphate stones and pH greater than 6.0 may reduce the tendency for uric acid stone formation. Source: [facility] [employer] Current Interpretive Data was last revised on 2017 Testing performed by: [facility], [address] [place] [address]., [address] Protein, ur ql 1+(A) Negative LAILA Comment:Testing performed by : [address] [address] Glucose, ur ql Negative Negative LAILA Comment:Testing performed by : [address] [address] Ketones, ur 2+(A) Negative LAILA Comment:Testing performed by : [address] [address] Bilirubin, ur Negative Negative LAILA Comment:Testing performed by : [address] [address] Blood, ur Negative Negative LAILA Comment:Testing performed by : [address] [address] Urobilinogen, ur <2.0 <2.0 mg/dL LAILA Comment:Testing performed by : [address] [address] Nitrite, ur Negative Negative LA[facility]A Comment:Testing performed by : [address] [address] Leukocyte esterase, ur 4+(A) Negative LAILA Comment:Testing performed by : [address] [address] UA reflex comment Reflex to microscopic UA will be performed. LAILA Comment:Testing performed by : [address] [address] Urine 02/25/2025 2:43 AM CDT 02/25/2025 2:46 AM CDT us Brian Hopper DO LAB MICROBIOLOGY - GENERAL ORD ERABLES Final Result LAILA HARMON [address] [facility] Department [place] [address] [phone] * (ABNORMAL) Urinalysis, microscopic only (02/25/2025 2:43 AM CDT) Pathologist [facility] WBC, ur 21-50(A) 0 - 5 /HPF Comment:Testing performed by : [address] [address] RBC, ur 0-2 0 - 2 /HPF LAILA Comment:Testing performed by : [address] [address] Epithelial cells, squamous, ur >50(A) 0 - 5 /HPF LAILA Comment:Testing performed by : [address] [address] Mucous, ur Present(A) LAILA Comment:Testing performed by : [address] [address] Culture Reflex Comment Reflex to urine culture will be performed. LAILA Comment:Testing performed by : [address] [address] Urine 02/25/2025 2:43 AM CDT 02/25/2025 2:46 AM CDT [employer] Brian Hopper DO LAB URINE ORDERABLES Final Res ult LAILA [address] [facility] Department [place] [address] * (ABNORMAL) POCT hCG, urine (02/25/2025 2:27 AM CDT) [facility] HCG, ur, POC Positive(A) Negative Lot Number [id number] QC Backgroud Clear Acceptable QC Control Line Acceptable Urine 02/25/2025 2:27 AM CDT [employer] POINT OF CARE TEST ORDERABLES Final Result * Lactate (02/25/2025 2:17 AM CDT) [facility] Lactate 1.5 0.7 - 2.0 mmol/L Comment:Testing performed by : [facility], [address] [place] [address]., [address] Blood 02/25/2025 2:17 AM CDT 02/25/2025 2:22 AM CDT Brian Hopper DO LAB BLOOD ORDERABLES Final Res ult LAILA [address] [place] [address] * eGFR (02/25/2025 2:17 AM CDT) eGFR [...] was last reviewed 2021. Testing performed by: [facility], [address] [place] [address]., [address] Blood 02/25/2025 2:17 AM CDT 02/25/2025 2:23 AM CDT Brian Hopper DO LAB BLOOD ORDERABLES Final Res ult LAILA [address] [place] [address] * (ABNORMAL) Differential, auto (02/25/2025 2:17 AM CDT) [facility] Neutrophil abs 13.19(H) 1.50 - 6.50 K/cumm Comment:Testing performed by : [address] [address] Imm gran abs 0.09 0.00 - 0.10 K/cumm [facility] Comment:Testing performed by : [address], [place]., [address] Lymphocyte abs 1.03 0.80 - 3.30 K/cumm [facility] Comment:Testing performed by : [address], [place]., [address] Monocyte abs 0.41 0.20 - 0.80 K/cumm [facility] Comment:Testing performed by : [address] [address] Eosinophil abs 0.04 0.00 - 0.50 K/cumm [facility] Comment:Testing performed by : [address] [address] Basophil abs 0.04 0.00 - 0.10 K/cumm [facility] Comment:Testing performed by : [address] [address] Neutrophil pct 89.0 % [facility] Comment: Interpretive Data Percent cell count reference ranges are not reported, since discordance with absolute values may lead to misinterpretation of CBC data. Current Interpretive Data was last revised on 2017. Testing performed by: [address] [address] Imm gran pct 0.6 % [facility] Comment: Interpretive Data Percent cell count reference ranges are not reported, since discordance with absolute values may lead to misinterpretation of CBC data. Current Interpretive Data was last revised on 2017. Testing performed by: [address] [address] Lymphocyte pct 7.0 % [facility] Comment: Interpretive Data Percent cell count reference ranges are not reported, since discordance with absolute values may lead to misinterpretation of CBC data. Current Interpretive Data was last revised on 2017. Testing performed by: [address] [address] Monocyte pct 2.8 % [facility] Comment: Interpretive Data Percent cell count reference ranges are not reported, since discordance with absolute values may lead to misinterpretation of CBC data. Current Interpretive Data was last revised on 2017. Testing performed by: [address] [address] Eosinophil pct 0.3 % [facility]A Comment: Interpretive Data Percent cell count reference ranges are not reported, since discordance with absolute values may lead to misinterpretation of CBC data. Current Interpretive Data was last revised on 2017. Testing performed by: [address] [address] Basophil pct 0.3 % [facility] Comment: Interpretive Data Percent cell count reference ranges are not reported, since discordance with absolute values may lead to misinterpretation of CBC data. Current Interpretive Data was last revised on 2017. Testing performed by: [address] [address] Blood 02/25/2025 2:17 AM CDT 02/25/2025 2:22 AM CDT us Brian Hopper DO LAB BLOOD ORDERABLES Final Res ult LAILA [address] [facility] Department [place] [address] * (ABNORMAL) CBC with auto differential (02/25/2025 2:17 AM CDT) WBC 14.80(H) 3.80 - 9.90 K/cumm Comment:Testing performed by : [address] [address] Hgb 12.4 11.9 - 15.5 g/dL LAILA HARMON Comment:Testing performed by : [address] [address] Hct 36.5 35.6 - 45.5 % LAILA HARMON Comment:Testing performed by : [address] [address] Plt 217 150 - 400 K/cumm LAILA HARMON Comment:Testing performed by : [address] [address] MPV 10.5 9.1 - 12.3 fL LAILA HARMON Comment:Testing performed by : [address] [address] RBC 4.09 3.90 - 5.20 M/cumm LAILA HARMON Comment:Testing performed by : [address] [address] MCV 89.2 81.3 - 96.4 fL LAILA Comment:Testing performed by : [address] [address] MCH 30.3 27.1 - 33.3 pg LAILA HARMON Comment:Testing performed by : [address] [address] MCHC 34.0 32.3 - 35.7 g/dL LAILA Comment:Testing performed by : [address] [address] RDW CV 13.4 11.1 - 14.9 % LAILA Comment:Testing performed by : [address] [address] RDW SD 43.8 35.7 - 48.1 fL LAILA Comment:Testing performed by : [address] [address] NRBC abs 0.00 0.00 - 0.01 K/cumm LAILA Comment:Testing performed by : [address], [address] Blood 02/25/2025 2:17 AM CDT 02/25/2025 2:22 AM CDT us Brian Hopper DO LAB BLOOD ORDERABLES Final Res ult LAILA [address] [facility] Department of Laboratories [place], [place] [id number] * (ABNORMAL) Lipase (02/25/2025 2:17 AM CDT) Lipase 229(H) 10 - 99 Units/L Comment:Testing performed by : [address] [address] Blood 02/25/2025 2:17 AM CDT 02/25/2025 2:23 AM CDT us Brian Hopper DO LAB BLOOD ORDERABLES Final Res ult LAILA [address] [facility] Department [place] [address] * (ABNORMAL) Comprehensive metabolic panel (02/25/2025 2:17 AM CDT) Sodium 138 135 - 145 mmol/L Comment:Testing performed by : [address] [address] Potassium, pl 3.8 3.3 - 4.9 mmol/L LAILA Comment:Testing performed by : [address] [address] Chloride 101 97 - 110 mmol/L LAILA Comment:Testing performed by : [address] [address] CO2 24 22 - 32 mmol/L LAILA Comment:Testing performed by : [address] [address] Anion gap 13 2 - 15 mmol/L LAILA Comment:Testing performed by : [address] [address] BUN 11 6 - 25 mg/dL LAILA Comment:Testing performed by : [address] [address] Creatinine 0.52(L) 0.60 - 1.10 mg/dL LAILA Comment:Testing performed by : [address] [address] Glucose 124 70 - 199 mg/dL LAILA [...] was last revised 2022. Testing performed by: [address] [address] Calcium 9.2 8.5 - 10.3 mg/dL LAILA Comment:Testing performed by : [address] [address] Bilirubin, total 0.2 0.1 - 1.2 mg/dL LAILA Comment:Testing performed by : [address] [address] Protein, pl 7.1 6.5 - 8.5 g/dL LAILA Comment:Testing performed by : [address] [address] Albumin 4.2 3.5 - 5.0 g/dL LAILA Comment:Testing performed by : [address] [address] Alk phos 52 40 - 130 Units/L LAILA Comment:Testing performed by : [address] [address] ALT 15 7 - 45 Units/L LAILA Comment:Testing performed by : [address] [address] AST 15 10 - 45 Units/L LAILA Comment:Testing performed by : [address] [address] Blood 02/25/2025 2:17 AM CDT 02/25/2025 2:23 AM CDT us Brian Hopper DO LAB BLOOD ORDERABLES Final Res ult LAILA HARMON [address] [facility] Department of Laboratories [place], [place] [id number] * POCT glucose (02/25/2025 2:03 AM CDT) [facility] Signature Glucose, POC 118 70 - 199 mg/dL Comment:Testing performed by : [facility], [address] [place] [address], [place]., [address] Blood 02/25/2025 2:03 AM CDT 02/25/2025 2:03 AM CDT us [employer] Unknown LAB POCT ORDERABLES - DEVICE F inal Result LAILA [address] [facility] Department [place] [address] * MRI Brain WO Contrast (01/30/2025 7:23 PM CDT) Anatomical Region Laterality Modality Head and Neck N/A Magnetic Resonan ce 02/03/2025 8:28 AM CDT Narrative 02/03/2025 9:10 AM CDT EXAM DESCRIPTION: MRI BRAIN WO CONTRAST REASON FOR STUDY: seizure disorder Seizures, vision loss. TECHNIQUE: Multiplanar imaging includes non-contrasted T1, T2, FLAIR, and diffusion with ADC map sequences. Additional sequence(s) sensitive to blood products. Images stored on PACS. COMPARISON: None available. FINDINGS: Some of the sequences are degraded by motion related artifact. No diffusion restriction to suggest acute/recent infarction. There is no parenchymal susceptibility signal to indicate blood degradation products. The size and configuration of the ventricles and sulci normal for the patient's age. There is no hydrocephalus. The basilar cisterns are maintained. The inferior tip of the cerebellar tonsils approaching the foramen magnum. Pineal region 0.7 cm FLAIR signal is nonspecific and could reflect a pineal cyst, please correlate with previous imaging studies. No mass effect on the tectal plate. Note made of an occasional subcortical and periventricular white matter T2/FLAIR hyperintense signal in the bilateral cerebral hemispheres. These lesions are nonspecific in appearance and may be seen with migraine headache, vasculopathies, Lyme disease, and residua from inflammatory or traumatic insult to the brain. The current distribution is not classic for demyelination but would be included in the differential in the proper clinical scenario. Postcontrast imaging can be obtained as clinically indicated. Coronal oblique T2 and T2 weighted FLAIR sequences through the temporal lobes were obtained as a part of the seizure protocol. The sequences are limited by motion and pulsation related artifact. Grossly symmetric signal intensity and morphology through the mesial temporal lobes on both sides. This seizure protocol MRI is not optimized for evaluation of the orbits and its contents. As imaged the bilateral globes are grossly symmetric within the confines of the motion degraded large [id number] sequences. With a history of vision loss the need for contrast-enhanced orbital protocol MRI as clinically indicated. The imaged paranasal sinuses are predominantly clear. Trace T2 hyperintensities in the bilateral mastoid air cells. IMPRESSION: 1. Symmetric signal intensity and morphology through the mesial temporal lobes on both sides. 2. There is no acute infarction. 3. Occasional white matter T2/FLAIR hyperintense signal is highly nonspecific and could reflect gliosis. Please see above discussion. 4. Previous imaging studies are not available for comparison. THIS IS AN ELECTRONICALLY VERIFIED FINAL REPORT 02/03/2025 9:10 AM - Electronically signed by Pelon Dominguez D.O. AP T: Report ID: [id number] Reading Location: [id number] Procedure Note Pelon Dominguez, DO - 02/03/2025 EXAM DESCRIPTION: MRI BRAIN WO CONTRAST REASON FOR STUDY: seizure disorder Seizures, vision loss. TECHNIQUE: Multiplanar imaging includes non-contrasted T1, T2, FLAIR, and diffusion with ADC map sequences. Additional sequence(s) sensitive toblood products. Images stored on PACS. COMPARISON: None available. FINDINGS: Some of the sequences are degraded by motion related artifact. No diffusion restriction to suggest acute/recent infarction. There is no parenchymal susceptibility signal to indicate blooddegradation products. The size and configuration of the ventricles and sulci normal for the patient's age. There is no hydrocephalus. The basilar cisterns are maintained. The inferior tip of the cerebellar tonsils approaching theforamen magnum. Pineal region 0.7 cm FLAIR signal is nonspecific and couldreflect a pineal cyst, please correlate with previous imaging studies. No masseffect on the tectal plate. Note made of an occasional subcortical and periventricular white matter T2/FLAIR hyperintense signal in the bilateral cerebral hemispheres. These lesions are nonspecific in appearance and may be seen with migraineheadache, vasculopathies, Lyme disease, and residua from inflammatory or traumatic insult to the brain. The current distribution is not classic for demyelination but would be included in the differential in the properclinical scenario. Postcontrast imaging can be obtained as clinically indicated. Coronal oblique T2 and T2 weighted FLAIR sequences through the temporallobes were obtained as a part of the seizure protocol. The sequences arelimited by motion and pulsation related artifact. Grossly symmetric signal intensityand morphology through the mesial temporal lobes on both sides. This seizure protocol MRI is not optimized for evaluation of the orbitsand its contents. As imaged the bilateral globes are grossly symmetric withinthe confines of the motion degraded large [id number] sequences. With ahistory of vision loss the need for contrast-enhanced orbital protocol MRI as clinically indicated. The imaged paranasal sinuses are predominantlyclear. Trace T2 hyperintensities in the bilateral mastoid air cells. IMPRESSION: 1. Symmetric signal intensity and morphology through the mesial temporal lobes on both sides. 2. There is no acute infarction. 3. Occasional white matter T2/FLAIR hyperintense signal is highly nonspecific and could reflect gliosis. Please see above discussion. 4. Previous imaging studies are not available for comparison. THIS IS AN ELECTRONICALLY VERIFIED FINAL REPORT 02/03/2025 9:10 AM - Electronically signed by Pelon FORD T: Report ID: [id number] Reading Location: [place] [address] us Provider Transcribed Order IMG MRI PROCEDURES Fi nal Result from Last 3 Months Insurance [facility] Care Teams Calender Operator Helper Relationship Specialty Start Date End Date Tucker Jackson MD [facility] [address] [address] PCP - General Emergency Medicine 12/27/24
--- OUTSIDE RECORDS SUMMARY | 2025-02-25 19:37 | XMS_ITS | Referral Summary ---
Author Organization [facility] Address [address] [place] [id number] Care Team Providers Care Tool Shaper Setup Operator Name Role Phone Tucker Jackson MD Primary Care Provider [phone] Encounters Date Type Department Care Team Description 02/25/2025 1:58 AM CDT - 02/25/2025 4:34 AM CDT Emergency [facility] Emergency Department [address] [place] [address] Brian Hopper DO Seizure (HCC) (Primary Dx); Nausea and vomiting, unspecified vomiting type; Less than 8 weeks gestation of ; Acute pancreatitis, unspecified complication status, unspecified pancreatitis type Discharge Disposition: Discharge to home or self care 01/30/2025 5:45 PM CDT - 01/30/2025 11:59 PM CDT Hospital Encounter [facility] MRI [address] [place] [id number] Seizure disorder (HCC) Discharge Disposition: Discharge to home or self care from Last 3 Months Allergies Active Allergy Reactions Criticality Noted Date Comments Levetiracetam Seizures High 02/25/2025 Medications ondansetron ODT (ZOFRAN-ODT) 4 mg disintegrating tablet Take 1 tablet (4 mg total) by mouth every 4 (four) hours as needed for nausea 20 tablet 5 Active PNV with aqfemuc-ayas-PO 27 mg iron- 1 mg tablet Take 1 tablet by mouth daily 90 tablet 5 Active Social History Tobacco Use Types Packs/Day Years [...] on file Legal Sex Female 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 pH may affect urinary stone formation. For example, urine pH below 6.0 may help reduce the tendency for calcium phosphate stones and pH greater than 6.0 may reduce the tendency for uric acid stone formation. Source: [facility] Current Interpretive Data was last revised on 2017 Testing performed by: [address] [address] Protein, ur ql 1+(A) Negative LAILA Comment:Testing performed by : [address] [address] Glucose, ur ql Negative Negative LAILA Comment:Testing performed by : [address] [address] Ketones, ur 2+(A) Negative LAILA Comment:Testing performed by : [address] [address] Bilirubin, ur Negative Negative LAILA Comment:Testing performed by : [address], [place]., [address] Blood, ur Negative Negative LAILA Comment:Testing performed by : [address], [place]., [address] Urobilinogen, ur <2.0 <2.0 mg/dL LAILA HARMON Comment:Testing performed by : [facility] [address] [place] [address], [place]., [address] Nitrite, ur Negative Negative LAILA Comment:Testing performed by : [address], [place]., [address] Leukocyte esterase, ur 4+(A) Negative LIALA Comment:Testing performed by : [address], [place]., [address] UA reflex comment Reflex to microscopic UA will be performed. LAILA HARMON Comment:Testing performed by : [facility] [address] [place] [address], [place]., [address] Urine 02/25/2025 2:43 AM CDT 02/25/2025 2:46 AM CDT us Brian Hopper DO LAB MICROBIOLOGY - GENERAL ORD ERABLES Final Result LAILA [address] [facility] Department [place] [address] * (ABNORMAL) Urinalysis, microscopic only (02/25/2025 2:43 AM CDT) WBC, ur 21-50(A) 0 - 5 /HPF Comment:Testing performed by : [facility] [address] [place] [address], [place]., [address] RBC, ur 0-2 0 - 2 /HPF LAILA Comment:Testing performed by : [address], [place]., [address] Epithelial cells, squamous, ur >50(A) 0 - 5 /HPF LAILA HARMON Comment:Testing performed by : [address], [place]., [address] Mucous, ur Present(A) LAILA HARMON Comment:Testing performed by : [address], [place]., [address] Culture Reflex Comment Reflex to urine culture will be performed. LAILA Comment:Testing performed by : [facility], [address] [place] [address]., [address] Urine 02/25/2025 2:43 AM CDT 02/25/2025 2:46 AM CDT [facility] LAB URINE ORDERABLES Final Res ult Performing Organization Address [facility] Co de Phone Number LAILA [facility] [place] [place] [address] * (ABNORMAL) POCT hCG, urine (02/25/2025 2:27 AM CDT) [facility] HCG, ur, POC Positive(A) Negative Lot Number [id number] QC Backgroud Clear Acceptable QC Control Line Acceptable Urine 02/25/2025 2:27 AM CDT [facility] DO POINT OF CARE TEST ORDERABLES Final Result * Lactate (02/25/2025 2:17 AM CDT) [facility] Lactate 1.5 0.7 - 2.0 mmol/L Comment:Testing performed by : [facility], [address] [place] [address]., [address] Blood 02/25/2025 2:17 AM CDT 02/25/2025 2:22 AM CDT [facility] LAB BLOOD ORDERABLES Final Res ult Performing Organization Address [facility]/ZIP Co de Phone Number [id number] [place] [address] * eGFR (02/25/2025 2:17 AM CDT) [facility] eGFR >90 >=60 mL/min/1. 73 m2 Comment: [...] was last reviewed 2021. Testing performed by: [address] [address] Blood 02/25/2025 2:17 AM CDT 02/25/2025 2:23 AM CDT Brian Hopper DO LAB BLOOD ORDERABLES Final Res ult LAILA [address] [facility] Department [place] [address] * (ABNORMAL) Differential, auto (02/25/2025 2:17 AM CDT) Neutrophil abs 13.19(H) 1.50 - 6.50 K/cumm Comment:Testing performed by : [address] [address] Imm gran abs 0.09 0.00 - 0.10 K/cumm LAILA Comment:Testing performed by : [address] [address] Lymphocyte abs 1.03 0.80 - 3.30 K/cumm LAILA Comment:Testing performed by : [address] [address] Monocyte abs 0.41 0.20 - 0.80 K/cumm LAILA Comment:Testing performed by : [address] [address] Eosinophil abs 0.04 0.00 - 0.50 K/cumm LAILA Comment:Testing performed by : [address] [address] Basophil abs 0.04 0.00 - 0.10 K/cumm LAILA Comment:Testing performed by : [address] [address] Neutrophil pct 89.0 % [facility] Comment: Interpretive Data Percent cell count reference ranges are not reported, since discordance with absolute values may lead to misinterpretation of CBC data. Current Interpretive Data was last revised on 2017. Testing performed by: [address] [address] Imm gran pct 0.6 % [facility] Comment: Interpretive Data Percent cell count reference ranges are not reported, since discordance with absolute values may lead to misinterpretation of CBC data. Current Interpretive Data was last revised on 2017. Testing performed by: [address] [address] Lymphocyte pct 7.0 % [facility] Comment: Interpretive Data Percent cell count reference ranges are not reported, since discordance with absolute values may lead to misinterpretation of CBC data. Current Interpretive Data was last revised on 2017. Testing performed by: [address] [address] Monocyte pct 2.8 % [facility] Comment: Interpretive Data Percent cell count reference ranges are not reported, since discordance with absolute values may lead to misinterpretation of CBC data. Current Interpretive Data was last revised on 2017. Testing performed by: [address] [address] Eosinophil pct 0.3 % [facility] Comment: Interpretive Data Percent cell count reference ranges are not reported, since discordance with absolute values may lead to misinterpretation of CBC data. Current Interpretive Data was last revised on 2017. Testing performed by: [address] [address] Basophil pct 0.3 % [facility] Comment: Interpretive Data Percent cell count reference ranges are not reported, since discordance with absolute values may lead to misinterpretation of CBC data. Current Interpretive Data was last revised on 2017. Testing performed by: [address] [address] Blood 02/25/2025 2:17 AM CDT 02/25/2025 2:22 AM CDT us Brian Hopper DO LAB BLOOD ORDERABLES Final Res ult LAILA [address] [facility] Department [place] [address] * (ABNORMAL) CBC with auto differential (02/25/2025 2:17 AM CDT) WBC 14.80(H) 3.80 - 9.90 K/cumm Comment:Testing performed by : [address] [address] Hgb 12.4 11.9 - 15.5 g/dL LAILA Comment:Testing performed by : [address] [address] Hct 36.5 35.6 - 45.5 % LAILA Comment:Testing performed by : [address] [address] Plt 217 150 - 400 K/cumm LAILA Comment:Testing performed by : [address] [address] MPV 10.5 9.1 - 12.3 fL LAILA Comment:Testing performed by : [address] [address] RBC 4.09 3.90 - 5.20 M/cumm LAILA Comment:Testing performed by : [address] [address] MCV 89.2 81.3 - 96.4 fL LAILA Comment:Testing performed by : [address] [address] MCH 30.3 27.1 - 33.3 pg LAILA HARMON Comment:Testing performed by : [address] [address] MCHC 34.0 32.3 - 35.7 g/dL LAILA HARMON Comment:Testing performed by : [address] [address] RDW CV 13.4 11.1 - 14.9 % LAILA Comment:Testing performed by : [address] [address] RDW SD 43.8 35.7 - 48.1 fL LAILA Comment:Testing performed by : [address] [address] NRBC abs 0.00 0.00 - 0.01 K/cumm LAILA Comment:Testing performed by : [address] [address] Blood 02/25/2025 2:17 AM CDT 02/25/2025 2:22 AM CDT Brian Hopper DO LAB BLOOD ORDERABLES Final Res ult Performing Organization Address [facility] de Phone Number [address] [place] [employer] [place] [address] * (ABNORMAL) Lipase (02/25/2025 2:17 AM CDT) Pathologist [facility] Lipase 229(H) 10 - 99 Units/L Comment:Testing performed by : [address] [address] Blood 02/25/2025 2:17 AM CDT 02/25/2025 2:23 AM CDT Brian Hopper DO LAB BLOOD ORDERABLES Final Res ult Performing Organization Address [facility] de Phone Number [address] [place] [address] * (ABNORMAL) Comprehensive metabolic panel (02/25/2025 2:17 AM CDT) Pathologist [facility] Sodium 138 135 - 145 mmol/L Comment:Testing performed by : [address] [address] Potassium, pl 3.8 3.3 - 4.9 mmol/L LAILA Comment:Testing performed by : [address], [place]., [address] Chloride 101 97 - 110 mmol/L LAILA Comment:Testing performed by : [address], [place]., [address] CO2 24 22 - 32 mmol/L LAILA Comment:Testing performed by : [address] [address] Anion gap 13 2 - 15 mmol/L LAILA Comment:Testing performed by : [address], [place]., [address] BUN 11 6 - 25 mg/dL LAILA Comment:Testing performed by : [address], [place]., [address] Creatinine 0.52(L) 0.60 - 1.10 mg/dL LAILA Comment:Testing performed by : [address] [address] Glucose 124 70 - 199 mg/dL LAILA [...] was last revised 2022. Testing performed by: [address] [address] Calcium 9.2 8.5 - 10.3 mg/dL LAILA Comment:Testing performed by : [address] [address] Bilirubin, total 0.2 0.1 - 1.2 mg/dL LAILA Comment:Testing performed by : [address] [address] Protein, pl 7.1 6.5 - 8.5 g/dL LAILA Comment:Testing performed by : [address] [place] [address] Albumin 4.2 3.5 - 5.0 g/dL LAILA Comment:Testing performed by : [address] [address] Alk phos 52 40 - 130 Units/L LAILA Comment:Testing performed by : [address] [address] ALT 15 7 - 45 Units/L LAILA Comment:Testing performed by : [address] [address] AST 15 10 - 45 Units/L LAILA Comment:Testing performed by : [address] [address] Blood 02/25/2025 2:17 AM CDT 02/25/2025 2:23 AM CDT us Brian Hopper DO LAB BLOOD ORDERABLES Final Res ult Performing Organization Address City/[facility]/ZIP Co de Phone Number [id number] [place] [employer] [place] [address] * POCT glucose (02/25/2025 2:03 AM CDT) [facility] Glucose, POC 118 70 - 199 mg/dL Comment:Testing performed by : [address] [address] Blood 02/25/2025 2:03 AM CDT 02/25/2025 2:03 AM CDT us [facility] Unknown LAB POCT ORDERABLES - DEVICE F inal Result Performing Organization Address City/[facility]/ZIP Co de Phone Number [address] [place] [address] * MRI Brain WO Contrast (01/30/2025 7:23 [...] the confines of the motion degraded large [id number] sequences. With a history of vision loss [...] 02/03/2025 9:10 AM - Electronically signed by Pelonmisty FORD T: Report ID: [id number] Reading Location: [id number] Procedure Note Pelon Dominguez, DO - 02/03/2025 [...] withinthe confines of the motion degraded large [id number] sequences. With ahistory of vision loss the [...] signed by Pelon FORD T: Report ID: [id number] Reading Location: [place] [address] us Provider Transcribed Order IMG MRI PROCEDURES Fi nal Result from Last 3 Months Insurance Care Teams Tool Shaper Setup Operator Relationship Specialty Start Date End Date Tucker Jackson MD [address] [address] PCP - General Emergency Medicine 12/27/24
[2025-02-25 19:45] VITALS: BP 125/81; PULSE 74; RESP 17; TEMP 36.4; O2SAT 100
[2025-02-25 20:17] LABS: Basophils Percent Auto 0.2 % (0.2-1.2); Eosinophils Absolute Auto 0.1 K/mm3 (0-0.3); Eosinophils Percent Auto 0.6 % (0-4.4); Hematocrit 35.8 % (37.0-47.0); Hemoglobin 11.9 g/dL (12.0-15.0); Immature Granulocyte Absolute 0.06 K/mm3 (0.00-0.031); Immature Granulocyte Percent A 0.5 % (0-0.5); Lymphocytes Absolute Auto 2.25 K/mm3 (0.9-3.2); Mean Corpuscular HGB Conc 33.2 g/dl (32-36); Mean Corpuscular Hemoglobin 30.7 pg (26-34); Mean Corpuscular Volume 92.5 fl (80-100); Mean Platelet Volume 10.3 fl (7.4-10.4); Monocytes Absolute Auto 0.7 K/mm3 (0.1-0.6); Monocytes Percent Auto 5.5 % (2.6-8.5); Neutrophils Absolute Auto 10.1 K/mm3 (1.3-6.7); Neutrophils Percent Auto 76.2 % (45.5-73.1); Platelet Count Result 203 k/mm3 (150-375); Red Blood Count 3.87 M/mm3 (4.2-5.4); Red Cell Distribution Width 13.9 % (11.5-14.5); White Blood Count 13.2 K/mm3 (4.5-10.0)
[2025-02-25 20:27] LABS: Alanine Aminotransferase 17 U/L (6-35); Alkaline Phosphatase 47 U/L (38-126); Anion Gap 6 mmol/L (4-12); Aspartate Amino Transferase 25 U/L (14-36); Bilirubin,Total 0.5 mg/dL (0.2-1.3); Blood Urea Nitrogen 8 mg/dL (7-17); Calcium 9.1 mg/dL (8.4-10.2); Carbon Dioxide 23 mmol/L (22-30); Chloride 105 mmol/L (98-107); Estimated CRCL calculation 115 ml/min; Estimated Glomerular Filt Rate > 60; Glucose 89 mg/dL (65-110); Lipase 36 U/L (23-300); Potassium 3.9 mmol/L (3.4-5.0); Sodium 134 mmol/L (137-145); Total Protein 7.1 g/dL (6.3-8.2)
[2025-02-25 20:28] LABS: Lactic Acid Reflex 0.9 mmol/L (0.7-2.0)
--- OUTSIDE RECORDS SUMMARY | 2025-02-25 20:44 | XMS_ITS | CONTINUITY OF CARE DOCUMENT ---
Author Name apolinarsania krissy Address Unknown Organization [facility] Address [id number] [place] [address] [address] [place] [address] Phone [phone] Care Team Providers Care Laser Beam Machine Operator Name Role Phone Geo Betancourt MD Unavailable [phone] TAMIKO DEAN MD Unavailable [phone] TAMIKO DEAN MD Unavailable [phone] PROBLEMS Condition Status Date Provider Notes Chest pain active Geo Betancourt MD Seizure Disorder active Geo Betancourt MD Chronic back pain active Geo Betancourt MD Nicotine dependence active Geo Betancourt MD ENCOUNTERS Date Type Provider Location Encounter Diag nosis - In-person encounter Office Visit Geo Betancourt MD [place] [facility] Chest painSeizure DisorderChronic back painNicotine dependence VITAL SIGNS Date Observation Value Provider Body Mass Index (Ratio) 22.42 kg/m2 Aj Betancourt MD blood pressure, diastolic 60 mm[Hg] Camilla nkLogchristi blood pressure, systolic 108 mm[Hg] Priscilla kLogic height E&M 63 [in_i] Heide Ventimig jose [employer] blood pressure, diastolic 60 mm[Hg] Am loki Ventimiglia [employer] blood pressure, systolic 108 mm[Hg] Lepanto nda Ventimiglia [employer] oxygen saturation, oximetry 99 % Heide Ventimiglia [employer] respiratory rate E&M 14 /min Heideloki Schustermiglia [facility] pulse rate 83 /min Heideloki Schustermig jose [facility] weight E&M 126.6 [lb_av] Heide Schustermi jeff [facility] SOCIAL HISTORY Date Observation Value Provider personal history of marijuana use yes Heideloki Schustermiglia [employer] drug use no Heideloki Schustermig jose [facility] alcohol use, average drinks per day socia l Heide Schustermiglia [facility] alcohol use yes Heideloki Schustermig jose [facility] chewing tobacco use Current Heide V entimiglia [facility] INSURANCE PROVIDERS Payer name Policy type / Coverage type Saman red democrat ID [employer] MEDICAID (2) Medicaid [id number] TREATMENT PLAN Date Name Performer Cardiology:cessation encouraged Heide Marcusglia [facility] Cardiology:with repo rts of back surgery a bnormal gait associated Heide Marcusglia [facility] Cardiology:currently not following with neurology H ave recommended she call for follow up as directed by her PCP Heide Jones [facility] Cardiology:Has been on and off for several [...] get her labs from PCP Heide Jones [facility] Date Name EKG Stress Regadenoson Complete Echo
--- OUTSIDE RECORDS SUMMARY | 2025-02-25 20:44 | XMS_ITS | Continuity of Care Document ---
Author Organization [facility] Address [address] [place] [address] Phone Care Team Providers Care Acquisition Marketing Coordinator Name Role Phone Azar Mccabe MD Unavailable Unavailable Advance Directives Directive Yes / No Effective Date File Name No Information Encounters Encounter Description Practice Location Reason(s) For Visit Diagnoses Date Provider Providers Copied on Encounter [facility], [address] [place] [address], [id number], tel:[phone] [facility] No Information [address] [place], [place], [id number] , . tel:[phone] Family History Family Member Type Diagnosis Age At Onset No Information Payers Payer name Insurance type Covered republican ID Authoriza tion(s) No Information Social History [...]
--- OUTSIDE RECORDS SUMMARY | 2025-02-25 20:44 | XMS_ITS | Continuity of Care Document ---
Author Organization [facility] Address [address] [place] [address] Phone Care Team Providers Care Surgical Dental Assistant Name Role Phone Unavailable Unavailable Unavailable Advance Directives Directive Yes / No Effective Date File Name No Information Encounters Encounter Description Practice Location Reason(s) For Visit Diagnoses Date Provider Providers Copied on Encounter [facility], [address] [facility], [place], [id number], [place] tel:[phone] [facility] No Information No Information Referring Provider: RENU Aguirre, [address], [place], [address]. tel:[phone] Family History Family Member Type Diagnosis Age At Onset No Information Payers Payer name Insurance type Covered alliance party ID Authoriza tion(s) No Information Social History Type Description Quantity Date Captured Comments Sex Female Smoking Status No Information Chief Complaint And Reason For Visit No Information History Of Present Illness Encounter Date Complaint History Of Prese nt Illness No Information Instructions Date Instruction Additional Infor mation No Information Assessments Type Assessment Date No Information
--- OUTSIDE RECORDS SUMMARY | 2025-02-25 20:44 | XMS_ITS | Referral Summary ---
Author Organization [facility] Address [address] [place] [phone] Care Team Providers Care Linux Developer Name Role Phone Tucker Jackson MD Primary Care Provider [phone] Encounters Date Type Department Care Team Description 02/25/2025 1:58 AM CDT - 02/25/2025 4:34 AM CDT Emergency [facility] Emergency Department [address] [place] [address] Brian Hopper DO Seizure (HCC) (Primary Dx); Nausea and vomiting, unspecified vomiting type; Less than 8 weeks gestation of ; Acute pancreatitis, unspecified complication status, unspecified pancreatitis type Discharge Disposition: Discharge to home or self care 01/30/2025 5:45 PM CDT - 01/30/2025 11:59 PM CDT Hospital Encounter [facility] MRI [address] [place] [id number] Seizure disorder (HCC) Discharge Disposition: Discharge to home or self care from Last 3 Months Allergies Active Allergy Reactions Criticality Noted Date Comments Levetiracetam Seizures High 02/25/2025 Medications ondansetron ODT (ZOFRAN-ODT) 4 mg disintegrating tablet Take 1 tablet (4 mg total) by mouth every 4 (four) hours as needed for nausea 20 tablet 5 Active PNV with [id number] 27 mg iron- 1 mg tablet Take [...] on file 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 pH may affect urinary stone formation. For example, urine pH below 6.0 may help reduce the tendency for calcium phosphate stones and pH greater than 6.0 may reduce the tendency for uric acid stone formation. Source: [facility] Current Interpretive Data was last revised on 2017 Testing performed by: [address] [address] Protein, ur ql 1+(A) Negative LAILA Comment:Testing performed by : [address] [address] Glucose, ur ql Negative Negative LAILA Comment:Testing performed by : [address] [address] Ketones, ur 2+(A) Negative LAILA Comment:Testing performed by : [address] [address] Bilirubin, ur Negative Negative LAILA Comment:Testing performed by : [address], [place]., [address] Blood, ur Negative Negative LAILA Comment:Testing performed by : [address], [place]., [address] Urobilinogen, ur <2.0 <2.0 mg/dL LAILA HARMON Comment:Testing performed by : [facility] [address] [place] [address], [place]., [address] Nitrite, ur Negative Negative LAILA Comment:Testing performed by : [address], [place]., [address] Leukocyte esterase, ur 4+(A) Negative LAILA Comment:Testing performed by : [address], [place]., [address] UA reflex comment Reflex to microscopic UA will be performed. LAILA HARMON Comment:Testing performed by : [facility] [address] [place] [address], [place]., [address] Urine 02/25/2025 2:43 AM CDT 02/25/2025 2:46 AM CDT us Brian Hopper DO LAB MICROBIOLOGY - GENERAL ORD ERABLES Final Result LAILA [address] [facility] [place] [address] * (ABNORMAL) Urinalysis, microscopic only (02/25/2025 2:43 AM CDT) WBC, ur 21-50(A) 0 - 5 /HPF Comment:Testing performed by : [facility] [address] [place] [address], [place]., [address] RBC, ur 0-2 0 - 2 /HPF LAILA Comment:Testing performed by : [address], [place]., [address] Epithelial cells, squamous, ur >50(A) 0 - 5 /HPF LAILA HARMON Comment:Testing performed by : [address], [place]., [address] Mucous, ur Present(A) LAILA HARMON Comment:Testing performed by : [address], [place]., [address] Culture Reflex Comment Reflex to urine culture will be performed. LAILA Comment:Testing performed by : [facility], [address] [place] [address]., [address] Urine 02/25/2025 2:43 AM CDT 02/25/2025 2:46 AM CDT [employer] LAB URINE ORDERABLES Final Res ult Performing Organization Address [facility] Co de Phone Number LAILA [facility] [place] [address] * (ABNORMAL) POCT hCG, urine (02/25/2025 2:27 AM CDT) [facility] HCG, ur, POC Positive(A) Negative Lot Number [id number] QC Backgroud Clear Acceptable QC Control Line Acceptable Urine 02/25/2025 2:27 AM CDT [employer] DO POINT OF CARE TEST ORDERABLES Final Result * Lactate (02/25/2025 2:17 AM CDT) [facility] Lactate 1.5 0.7 - 2.0 mmol/L Comment:Testing performed by : [facility], [address] [place] [address]., [address] Blood 02/25/2025 2:17 AM CDT 02/25/2025 2:22 AM CDT [employer] LAB BLOOD ORDERABLES Final Res ult Performing Organization Address [facility]/ZIP Co de Phone Number [id number] [facility] [place] [address] * eGFR (02/25/2025 2:17 AM CDT) [facility] eGFR >90 >=60 mL/min/1. 73 m2 Comment: [...] was last reviewed 2021. Testing performed by: [address] [address] Blood 02/25/2025 2:17 AM CDT 02/25/2025 2:23 AM CDT Brian Hopper DO LAB BLOOD ORDERABLES Final Res ult LAILA [address] [facility] [place] [address] * (ABNORMAL) Differential, auto (02/25/2025 2:17 AM CDT) Neutrophil abs 13.19(H) 1.50 - 6.50 K/cumm Comment:Testing performed by : [address] [address] Imm gran abs 0.09 0.00 - 0.10 K/cumm LAILA Comment:Testing performed by : [address] [address] Lymphocyte abs 1.03 0.80 - 3.30 K/cumm LAILA Comment:Testing performed by : [address] [address] Monocyte abs 0.41 0.20 - 0.80 K/cumm LAILA Comment:Testing performed by : [address] [address] Eosinophil abs 0.04 0.00 - 0.50 K/cumm LAILA Comment:Testing performed by : [address] [address] Basophil abs 0.04 0.00 - 0.10 K/cumm LAILA Comment:Testing performed by : [address] [address] Neutrophil pct 89.0 % [facility] Comment: Interpretive Data Percent cell count reference ranges are not reported, since discordance with absolute values may lead to misinterpretation of CBC data. Current Interpretive Data was last revised on 2017. Testing performed by: [address] [address] Imm gran pct 0.6 % [facility] Comment: Interpretive Data Percent cell count reference ranges are not reported, since discordance with absolute values may lead to misinterpretation of CBC data. Current Interpretive Data was last revised on 2017. Testing performed by: [address] [address] Lymphocyte pct 7.0 % [facility] Comment: Interpretive Data Percent cell count reference ranges are not reported, since discordance with absolute values may lead to misinterpretation of CBC data. Current Interpretive Data was last revised on 2017. Testing performed by: [address] [address] Monocyte pct 2.8 % [facility] Comment: Interpretive Data Percent cell count reference ranges are not reported, since discordance with absolute values may lead to misinterpretation of CBC data. Current Interpretive Data was last revised on 2017. Testing performed by: [address] [address] Eosinophil pct 0.3 % [facility] Comment: Interpretive Data Percent cell count reference ranges are not reported, since discordance with absolute values may lead to misinterpretation of CBC data. Current Interpretive Data was last revised on 2017. Testing performed by: [address] [address] Basophil pct 0.3 % [facility] Comment: Interpretive Data Percent cell count reference ranges are not reported, since discordance with absolute values may lead to misinterpretation of CBC data. Current Interpretive Data was last revised on 2017. Testing performed by: [address] [address] Blood 02/25/2025 2:17 AM CDT 02/25/2025 2:22 AM CDT us Brian Hopper DO LAB BLOOD ORDERABLES Final Res ult LAILA [address] [facility] [place] [address] * (ABNORMAL) CBC with auto differential (02/25/2025 2:17 AM CDT) WBC 14.80(H) 3.80 - 9.90 K/cumm Comment:Testing performed by : [address] [address] Hgb 12.4 11.9 - 15.5 g/dL LAILA Comment:Testing performed by : [address] [address] Hct 36.5 35.6 - 45.5 % LAILA Comment:Testing performed by : [address] [address] Plt 217 150 - 400 K/cumm LAILA Comment:Testing performed by : [address] [address] MPV 10.5 9.1 - 12.3 fL LAILA Comment:Testing performed by : [address] [address] RBC 4.09 3.90 - 5.20 M/cumm LAILA Comment:Testing performed by : [address] [address] MCV 89.2 81.3 - 96.4 fL LAILA Comment:Testing performed by : [address] [address] MCH 30.3 27.1 - 33.3 pg LAILA HARMON Comment:Testing performed by : [address] [address] MCHC 34.0 32.3 - 35.7 g/dL LAILA HARMON Comment:Testing performed by : [address] [address] RDW CV 13.4 11.1 - 14.9 % LAILA Comment:Testing performed by : [address] [address] RDW SD 43.8 35.7 - 48.1 fL LAILA Comment:Testing performed by : [address] [address] NRBC abs 0.00 0.00 - 0.01 K/cumm LAILA Comment:Testing performed by : [address] [address] Blood 02/25/2025 2:17 AM CDT 02/25/2025 2:22 AM CDT Brian Hopper DO LAB BLOOD ORDERABLES Final Res ult Performing Organization Address [facility] de Phone Number [address] [place] [address] * (ABNORMAL) Lipase (02/25/2025 2:17 AM CDT) Pathologist [facility] Lipase 229(H) 10 - 99 Units/L Comment:Testing performed by : [address] [address] Blood 02/25/2025 2:17 AM CDT 02/25/2025 2:23 AM CDT Brian Hopper DO LAB BLOOD ORDERABLES Final Res ult Performing Organization Address [facility] de Phone Number [address] [facility] [place] [address] * (ABNORMAL) Comprehensive metabolic panel (02/25/2025 2:17 AM CDT) Pathologist [facility] Sodium 138 135 - 145 mmol/L Comment:Testing performed by : [address] [address] Potassium, pl 3.8 3.3 - 4.9 mmol/L LAILA Comment:Testing performed by : [address], [place]., [address] Chloride 101 97 - 110 mmol/L LAILA Comment:Testing performed by : [address], [place]., [address] CO2 24 22 - 32 mmol/L LAILA Comment:Testing performed by : [address] [address] Anion gap 13 2 - 15 mmol/L LAILA Comment:Testing performed by : [address], [place]., [address] BUN 11 6 - 25 mg/dL LAILA Comment:Testing performed by : [address], [place]., [address] Creatinine 0.52(L) 0.60 - 1.10 mg/dL LAILA Comment:Testing performed by : [address] [address] Glucose 124 70 - 199 mg/dL LAILA [...] was last revised 2022. Testing performed by: [address] [address] Calcium 9.2 8.5 - 10.3 mg/dL LAILA Comment:Testing performed by : [address] [address] Bilirubin, total 0.2 0.1 - 1.2 mg/dL LAILA Comment:Testing performed by : [address] [address] Protein, pl 7.1 6.5 - 8.5 g/dL LAILA Comment:Testing performed by : [address] [place] [address] Albumin 4.2 3.5 - 5.0 g/dL LAILA Comment:Testing performed by : [address] [address] Alk phos 52 40 - 130 Units/L LAILA Comment:Testing performed by : [address] [address] ALT 15 7 - 45 Units/L LAILA Comment:Testing performed by : [address] [address] AST 15 10 - 45 Units/L LAILA Comment:Testing performed by : [address] [address] Blood 02/25/2025 2:17 AM CDT 02/25/2025 2:23 AM CDT us Brian Hopper DO LAB BLOOD ORDERABLES Final Res ult Performing Organization Address City/[facility]/ZIP Co de Phone Number [id number] [place] [address] * POCT glucose (02/25/2025 2:03 AM CDT) [facility] Glucose, POC 118 70 - 199 mg/dL Comment:Testing performed by : [address] [address] Blood 02/25/2025 2:03 AM CDT 02/25/2025 2:03 AM CDT us Not[employer] Unknown LAB POCT ORDERABLES - DEVICE F inal Result Performing Organization Address City/[facility]/ZIP Co de Phone Number [address] [facility] [place] [address] * MRI Brain WO Contrast (01/30/2025 7:23 [...] the confines of the motion degraded large wikfo-cn-aase sequences. With a history of vision loss [...] signed by Pelonmisty FORD T: Report ID: [id number] Reading Location: [id number] Procedure Note Pelon Dominguez, DO - 02/03/2025 [...] withinthe confines of the motion degraded large dbccu-wy-xqyz sequences. With ahistory of vision loss the [...] signed by Pelon FORD T: Report ID: [id number] Reading Location: [place] [address] us Provider Transcribed Order IMG MRI PROCEDURES Fi nal Result from Last 3 Months Insurance Care Teams Linux Developer Relationship Specialty Start Date End Date Tucker Jackson MD [address] [address] PCP - General Emergency Medicine 12/27/24
--- OUTSIDE RECORDS SUMMARY | 2025-02-25 20:44 | XMS_ITS | Clinical Summary ---
Author Organization [facility] Address [address] [place] [address] Care Team Providers Care Assistant Corporate Secretary Name Role Phone Tucker Jackson MD Primary Care Provider [phone] Source Comments [facility],non-owned Affiliates and Associated Physician Practices is amultiple site organization consisting of ambulatory clinics and hospital sitesin [place], [place], [place] and [place]. This disclosure is being madepursuant to the Care Everywhere program and may not contain all information available regarding this patient. 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 Chronic Right renal colic symptom with moderate Hydronephrosis, suspect stone as Cultures negative 2. Insufficient Care. Care in [place] to 20 wks and unable to establish care here until 32 weeks 3. Hx Seizure Disorder. Had medications years ago but none now. Has [facility] Neurologist appt in one month. 4. UDS [...] neuro consult - referral sent 01/24 to [facility] neurology to review and schedule as of [...] Care Team Description 02/20/2025 Travel 02/20/2025 Telephone [facility] [address] [place] [phone] Victor M Medrano RN 02/12/2025 Orders Only [facility] - Neurology [address] [place] [phone] Radha Dodd PA-C Seizure disorder (HCC) 02/09/2025 Orders Only [facility] - Neurology [address] [place] [phone] Chantale Richards APRN-ELOISA Seizure disorder (HCC) 01/23/2025 10:28 AM CDT - 01/23/2025 11:59 PM CDT Hospital Encounter [facility] EEG/EMG [address] [place] [phone] Unknown, Provider Discharge Disposition: Home or Self Care 01/15/2025 Travel 12/25/2024 Telephone [facility] - Centralized Scheduling [address] [place] [address] Radha Dodd PA-C Medication Issue 12/24/2024 8:00 AM CDT Office Visit [facility] - Neurology [address] [place] [phone] Radha Dodd PA-C Seizure disorder (HCC) (Primary [...] on file 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 Gender Identity Not on file Sexual Orientation Not on file Last Filed Vital Signs Vital Sign Reading Time Taken Comments Blood Pressure 110/74 12/24/2024 8:02 AM CDT Pulse 82 12/24/2024 8:02 AM CDT Temperature 36.6 C (97.8 F) 11/11/2013 10:30 PM FLYING TEACHER Respiratory Rate 20 11/11/2013 7:35 PM FLYING TEACHER Oxygen Saturation 100% 12/24/2024 8:02 AM CDT Inhaled Oxygen Concentration - - Weight 60.8 kg (134 lb) 12/24/2024 8:02 AM CDT Height 160 cm (5' 3) 12/24/2024 8:02 AM CDT Body Mass Index 23.74 12/24/2024 8:02 AM CDT Plan of Treatment Upcoming Encounters Date Type Department Care Team (Late st Contact Info) Description 03/16/2025 11:00 AM CDT Appointment [facility] EEG/EMG [address] [place] [phone] 05/07/2025 11:30 AM CDT Office Visit [facility] - Neurology [address] [facility] [place] [address] Radha Dodd PA-C [address] [place] [address] Health Maintenance Due Date Last Done Comments [...] berman Result from Last 3 [place] [address] [facility] [place] [address] [place] [address] [place] [address] HEALTH PLAN Care Teams Assistant Corporate Secretary Relationship Specialty Start Date End Date Tucker Jackson MD [facility] [address] [address] PCP - General Family Medicine 01/23/25
--- OUTSIDE RECORDS SUMMARY | 2025-02-25 20:44 | XMS_ITS | Encounter Summary ---
Author Organization 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 [place] [address] Radha Dodd PA-C [address] [place] [address] documented as of this encounter Visit Diagnoses Not on filedocumented in this encounter Care Teams Regional Controller Relationship Specialty Start Date End Date Tucker Jackson MD [address] [place] [address] PCP - General Family Medicine 01/23/25 documented as of this encounter
--- OUTSIDE RECORDS SUMMARY | 2025-02-25 20:45 | XMS_ITS | Clinical Summary ---
Author Organization [facility] Address [address] [place] [id number] Care Team Providers Care Brass Buffer Name Role Phone Tucker Jackson MD Primary Care Provider [phone] Allergies Active Allergy Reactions Criticality Noted Date Comments Levetiracetam Seizures High 02/25/2025 Medications ondansetron ODT (ZOFRAN-ODT) 4 mg disintegrating tablet Take 1 tablet (4 mg total) by mouth every 4 (four) hours as needed for nausea 20 tablet 5 Active PNV with [id number]-zbgo-TX 27 mg iron- 1 mg tablet Take 1 tablet by mouth daily 90 tablet 5 Active Encounters Date Type Department Care Team Description 02/25/2025 1:58 AM CDT - 02/25/2025 4:34 AM CDT Emergency [facility] Emergency Department [address] [place] [id number] Brian Hopper DO Seizure (HCC) (Primary Dx); Nausea and vomiting, unspecified vomiting type; Less than 8 weeks gestation of ; Acute pancreatitis, unspecified complication status, unspecified pancreatitis type Discharge Disposition: Discharge to home or self care 01/30/2025 5:45 PM CDT - 01/30/2025 11:59 PM CDT Hospital Encounter [facility] MRI [address] [place] [id number] Seizure disorder (HCC) Discharge Disposition: Discharge [...] on file 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 pH may affect urinary stone formation. For example, urine pH below 6.0 may help reduce the tendency for calcium phosphate stones and pH greater than 6.0 may reduce the tendency for uric acid stone formation. Source: [facility] [employer] Current Interpretive Data was last revised on 2017 Testing performed by: [facility], [address] [place] [address]., [address] Protein, ur ql 1+(A) Negative LAILA Comment:Testing performed by : [address] [address] Glucose, ur ql Negative Negative LAILA Comment:Testing performed by : [address] [address] Ketones, ur 2+(A) Negative LAILA Comment:Testing performed by : [address] [address] Bilirubin, ur Negative Negative LAILA Comment:Testing performed by : [address] [address] Blood, ur Negative Negative LAILA Comment:Testing performed by : [address] [address] Urobilinogen, ur <2.0 <2.0 mg/dL LAILA Comment:Testing performed by : [address] [address] Nitrite, ur Negative Negative LAILA Comment:Testing performed by : [address] [address] Leukocyte esterase, ur 4+(A) Negative LAILA Comment:Testing performed by : [address] [address] UA reflex comment Reflex to microscopic UA will be performed. LAILA Comment:Testing performed by : [address] [address] Urine 02/25/2025 2:43 AM CDT 02/25/2025 2:46 AM CDT us Brian Hopper DO LAB MICROBIOLOGY - GENERAL ORD ERABLES Final Result LAILA HARMON [address] [facility] Department [place] [address] [phone] * (ABNORMAL) Urinalysis, microscopic only (02/25/2025 2:43 AM CDT) Pathologist [facility] WBC, ur 21-50(A) 0 - 5 /HPF Comment:Testing performed by : [address] [address] RBC, ur 0-2 0 - 2 /HPF LAILA Comment:Testing performed by : [address] [address] Epithelial cells, squamous, ur >50(A) 0 - 5 /HPF LAILA Comment:Testing performed by : [address] [address] Mucous, ur Present(A) LAILA Comment:Testing performed by : [address] [address] Culture Reflex Comment Reflex to urine culture will be performed. LAILA Comment:Testing performed by : [address] [address] Urine 02/25/2025 2:43 AM CDT 02/25/2025 2:46 AM CDT [employer] Brian Hopper DO LAB URINE ORDERABLES Final Res ult LAILA [address] [facility] Department [place] [address] * (ABNORMAL) POCT hCG, urine (02/25/2025 2:27 AM CDT) [facility] HCG, ur, POC Positive(A) Negative Lot Number [id number] QC Backgroud Clear Acceptable QC Control Line Acceptable Urine 02/25/2025 2:27 AM CDT [email or web address] POINT OF CARE TEST ORDERABLES Final Result * Lactate (02/25/2025 2:17 AM CDT) [facility] Lactate 1.5 0.7 - 2.0 mmol/L Comment:Testing performed by : [facility], [address] [place] [address]., [address] Blood 02/25/2025 2:17 AM CDT 02/25/2025 2:22 AM CDT Brian Hopper DO LAB BLOOD ORDERABLES Final Res ult LAILA [address] [place] [address] * eGFR (02/25/2025 2:17 AM CDT) eGFR [...] was last reviewed 2021. Testing performed by: [facility], [address] [place] [address]., [address] Blood 02/25/2025 2:17 AM CDT 02/25/2025 2:23 AM CDT Brian Hopper DO LAB BLOOD ORDERABLES Final Res ult LAILA [address] [place] [address] * (ABNORMAL) Differential, auto (02/25/2025 2:17 AM CDT) [facility] Neutrophil abs 13.19(H) 1.50 - 6.50 K/cumm Comment:Testing performed by : [address] [address] Imm gran abs 0.09 0.00 - 0.10 K/cumm [facility] Comment:Testing performed by : [address], [place]., [address] Lymphocyte abs 1.03 0.80 - 3.30 K/cumm [facility] Comment:Testing performed by : [address], [place]., [address] Monocyte abs 0.41 0.20 - 0.80 K/cumm [facility] Comment:Testing performed by : [address] [address] Eosinophil abs 0.04 0.00 - 0.50 K/cumm [facility] Comment:Testing performed by : [address] [address] Basophil abs 0.04 0.00 - 0.10 K/cumm [facility] Comment:Testing performed by : [address] [address] Neutrophil pct 89.0 % [facility] Comment: Interpretive Data Percent cell count reference ranges are not reported, since discordance with absolute values may lead to misinterpretation of CBC data. Current Interpretive Data was last revised on 2017. Testing performed by: [address] [address] Imm gran pct 0.6 % [facility] Comment: Interpretive Data Percent cell count reference ranges are not reported, since discordance with absolute values may lead to misinterpretation of CBC data. Current Interpretive Data was last revised on 2017. Testing performed by: [address] [address] Lymphocyte pct 7.0 % [facility] Comment: Interpretive Data Percent cell count reference ranges are not reported, since discordance with absolute values may lead to misinterpretation of CBC data. Current Interpretive Data was last revised on 2017. Testing performed by: [address] [address] Monocyte pct 2.8 % LAILA Comment: Interpretive Data Percent cell count reference ranges are not reported, since discordance with absolute values may lead to misinterpretation of CBC data. Current Interpretive Data was last revised on 2017. Testing performed by: [address] [address] Eosinophil pct 0.3 % LA[facility]A Comment: Interpretive Data Percent cell count reference ranges are not reported, since discordance with absolute values may lead to misinterpretation of CBC data. Current Interpretive Data was last revised on 2017. Testing performed by: [address] [address] Basophil pct 0.3 % [facility]A Comment: Interpretive Data Percent cell count reference ranges are not reported, since discordance with absolute values may lead to misinterpretation of CBC data. Current Interpretive Data was last revised on 2017. Testing performed by: [address] [address] Blood 02/25/2025 2:17 AM CDT 02/25/2025 2:22 AM CDT us Brian Hopper DO LAB BLOOD ORDERABLES Final Res ult LAILA [address] [facility] Department [place] [address] * (ABNORMAL) CBC with auto differential (02/25/2025 2:17 AM CDT) WBC 14.80(H) 3.80 - 9.90 K/cumm Comment:Testing performed by : [address] [address] Hgb 12.4 11.9 - 15.5 g/dL LAILA HARMON Comment:Testing performed by : [address] [address] Hct 36.5 35.6 - 45.5 % LAILA HARMON Comment:Testing performed by : [address] [address] Plt 217 150 - 400 K/cumm LAILA HARMON Comment:Testing performed by : [address] [address] MPV 10.5 9.1 - 12.3 fL LAILA HARMON Comment:Testing performed by : [address] [address] RBC 4.09 3.90 - 5.20 M/cumm LAILA AHRMON Comment:Testing performed by : [address] [address] MCV 89.2 81.3 - 96.4 fL LAILA Comment:Testing performed by : [address] [address] MCH 30.3 27.1 - 33.3 pg LAILA HARMON Comment:Testing performed by : [address] [address] MCHC 34.0 32.3 - 35.7 g/dL LAILA Comment:Testing performed by : [address] [address] RDW CV 13.4 11.1 - 14.9 % LA[facility]A Comment:Testing performed by : [address] [address] RDW SD 43.8 35.7 - 48.1 fL LAILA Comment:Testing performed by : [address] [address] NRBC abs 0.00 0.00 - 0.01 K/cumm LAILA Comment:Testing performed by : [address], [address] Blood 02/25/2025 2:17 AM CDT 02/25/2025 2:22 AM CDT us Brian Hopper DO LAB BLOOD ORDERABLES Final Res ult LAILA [address] [facility] Department of Laboratories [place], [place] [id number] * (ABNORMAL) Lipase (02/25/2025 2:17 AM CDT) Lipase 229(H) 10 - 99 Units/L Comment:Testing performed by : [address] [address] Blood 02/25/2025 2:17 AM CDT 02/25/2025 2:23 AM CDT us Brian Hopper DO LAB BLOOD ORDERABLES Final Res ult LAILA [address] [facility] Department [place] [address] * (ABNORMAL) Comprehensive metabolic panel (02/25/2025 2:17 AM CDT) Sodium 138 135 - 145 mmol/L Comment:Testing performed by : [address] [address] Potassium, pl 3.8 3.3 - 4.9 mmol/L LAILA Comment:Testing performed by : [address] [address] Chloride 101 97 - 110 mmol/L LAILA Comment:Testing performed by : [address] [address] CO2 24 22 - 32 mmol/L LAILA Comment:Testing performed by : [address] [address] Anion gap 13 2 - 15 mmol/L LAILA Comment:Testing performed by : [address] [address] BUN 11 6 - 25 mg/dL LAILA Comment:Testing performed by : [address] [address] Creatinine 0.52(L) 0.60 - 1.10 mg/dL LAILA Comment:Testing performed by : [address] [address] Glucose 124 70 - 199 mg/dL LAILA [...] was last revised 2022. Testing performed by: [address] [address] Calcium 9.2 8.5 - 10.3 mg/dL LAILA Comment:Testing performed by : [address] [address] Bilirubin, total 0.2 0.1 - 1.2 mg/dL LAILA Comment:Testing performed by : [address] [address] Protein, pl 7.1 6.5 - 8.5 g/dL LAILA Comment:Testing performed by : [address] [address] Albumin 4.2 3.5 - 5.0 g/dL LAILA Comment:Testing performed by : [address] [address] Alk phos 52 40 - 130 Units/L LAILA Comment:Testing performed by : [address] [address] ALT 15 7 - 45 Units/L LAILA Comment:Testing performed by : [address] [address] AST 15 10 - 45 Units/L LAILA Comment:Testing performed by : [address] [address] Blood 02/25/2025 2:17 AM CDT 02/25/2025 2:23 AM CDT us Brian Hopper DO LAB BLOOD ORDERABLES Final Res ult LAILA HARMON [address] [facility] Department of Laboratories [place], [place] [id number] * POCT glucose (02/25/2025 2:03 AM CDT) [facility] Signature Glucose, POC 118 70 - 199 mg/dL Comment:Testing performed by : [facility], [address] [place] [address], [place]., [address] Blood 02/25/2025 2:03 AM CDT 02/25/2025 2:03 AM CDT us Not[employer] Unknown LAB POCT ORDERABLES - DEVICE F inal Result LAILA [address] [facility] Department [place] [address] * MRI Brain WO Contrast (01/30/2025 7:23 [...] the confines of the motion degraded large bohyk-rw-feyl sequences. With a history of vision loss [...] Pelon Dominguez D.O. AP T: Report ID: [id number] Reading Location: [id number] Procedure Note Pelon Dominguez, DO - 02/03/2025 [...] withinthe confines of the motion degraded large atsqq-vd-ybyw sequences. With ahistory of vision loss the [...] signed by Pelon FORD T: Report ID: [id number] Reading Location: [place] [address] us Provider Transcribed Order IMG MRI PROCEDURES Fi nal Result from Last 3 Months Insurance [facility] Care Teams Brass Buffer Relationship Specialty Start Date End Date Tucker Jackson MD [facility] [address] [address] PCP - General Emergency Medicine 12/27/24
--- OUTSIDE RECORDS SUMMARY | 2025-02-25 20:45 | XMS_ITS | Encounter Summary ---
Author Organization [facility] Healthcare Address [address] [place] [address] Care Team Providers Care Structural Metal Fabricator Apprentice Name Role Phone Tucker Jackson MD Primary Care Provider [phone] Reason for Visit * Reason Comments Abdominal Pain Nausea Vomiting Seizures Encounter Details Date Type Department Care Team (Late st Contact Info) Description 02/25/2025 1:58 AM CDT - 02/25/2025 4:34 AM CDT Emergency [facility] Emergency Department [address] [place] [address] Brian Hopper, DO [address] [place] [address] Seizure (HCC) (Primary Dx); Nausea and vomiting, [...] on file 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 * Pancreatitis (Discharge Care) (Malagasy) documented in this encounter Medications at Time of Discharge ondansetron ODT (ZOFRAN-ODT) 4 mg disintegrating tablet Take 1 tablet (4 mg total) by mouth every 4 (four) hours as needed for nausea 20 tablet 02/25/2025 PNV with dztrhge-brvd-MF 27 mg iron- 1 mg tablet Take 1 tablet by mouth daily 90 tablet 02/25/2025 documented as of this encounter Ordered Prescriptions Prescription Sig Dispense Quantity Refills Last Filled Start Date End Date PNV with ojpynrw-uugf-RP 27 mg iron- 1 mg tablet Take [...] Pain ??? Nausea ??? Vomiting ??? Seizures Qutia Del Rio is a 29 y.o. female w/ PMHx including absent seizures, IBS, and other PMHx as below presenting to the ED for evaluation of multiple medical complaints. Per EMS, pt arrives to the EDc/o abdominal pain, nausea, and vomiting. 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 Pt states she's no longer taking lamictal [...] abdominal pain, states she had nausea/vomiting earlier SALES STRATEGY MANAGER. Pt also notes of some constipation. Of note, pt was found to be in the ED, states that she wasn't aware she was beforehand. Pt's last menstrual cycle was the 16th of last month. Pt denies any other symptoms. Pt has no other acute complaints. Prior JOB TRAINER: Dr. Ho, doesn't currently have one. History [...] 4 mg disintegrating tablet ??? PNV with tyumuvi-rraw-AJ 27 mg iron- 1 mg tablet Review [...] be given a referral to f/u w/ JOB TRAINER. Pt understands to follow up w/JOB TRAINER. Pt agreeable w/ disposition. By: Eddie Tran [...] Brian Hopper DO 02/25/25 0411 * Matilde Whyet RN - 02/25/2025 2:00 AM CDT Pt [...] - 5 /HPF Comment:Testing performed by : [facility], [address] [place] [address]., [address] RBC, ur 0-2 0 - 2 /HPF LAILA Comment:Testing performed by : [address] [address] Epithelial cells, squamous, ur >50(A) 0 - 5 /HPF LAILA Comment:Testing performed by : [address] [address] Mucous, ur Present(A) LAILA Comment:Testing performed by : [address] [address] Culture Reflex Comment Reflex to urine culture will be performed. LAILA Comment:Testing performed by : [address] [address] Urine 02/25/2025 2:43 AM CDT 02/25/2025 2:46 AM CDT us Brian Hopper DO LAB URINE ORDERABLES Final Res ult LAILA HARMON [address] [facility] Department [place] [address] * (ABNORMAL) Urinalysis reflex to microscopic and culture Urine (02/25/2025 2:43 AM CDT) Color, ur Yellow Yellow Comment:Testing performed by : [address] [address] Clarity, ur Cloudy(A) Clear LAILA Comment:Testing performed by : [address] [address] Specific gravity, ur 1.031(H) 1.003 - 1.030 LAILA Comment:Testing performed by : [address] [address] pH, urine 6.5 LAILA Comment: Interpretive Data U rine pH is affected by diet, medications, systemic acid-base disturbances, and renal tubular function. pH may affect urinary stone formation. For example, urine pH below 6.0 may help reduce the tendency for calcium phosphate stones and pH greater than 6.0 may reduce the tendency for uric acid stone formation. Source: [facility] [employer] Current Interpretive Data was last revised on 2017 Testing performed by: [address] [address] Protein, ur ql 1+(A) Negative LAILA Comment:Testing performed by : [address] [address] Glucose, ur ql Negative Negative LAILA Comment:Testing performed by : [address] [address] Ketones, ur 2+(A) Negative LAILA Comment:Testing performed by : [address] [address] Bilirubin, ur Negative Negative LAILA Comment:Testing performed by : [address] [address] Blood, ur Negative Negative LAILA Comment:Testing performed by : [address] [address] Urobilinogen, ur <2.0 <2.0 mg/dL LAILA Comment:Testing performed by : [address] [address] Nitrite, ur Negative Negative LAILA Comment:Testing performed by : [address] [address] Leukocyte esterase, ur 4+(A) Negative LAILA Comment:Testing performed by : [address], [place]., [address] UA reflex comment Reflex to microscopic UA will be performed. LAILA HARMON Comment:Testing performed by : [facility], [address] [place] [address]., [address] Urine 02/25/2025 2:43 AM CDT 02/25/2025 2:46 AM CDT GreenGarlatasha Hopper DO LAB MICROBIOLOGY - GENERAL ORD ERABLES Final Result LAILA HARMON [address] [facility] Department [place] [address] * (ABNORMAL) POCT hCG, urine (02/25/2025 2:27 AM CDT) HCG, ur, POC Positive(A) Negative Lot Number [id number] QC Backgroud Clear Acceptable QC Control Line Acceptable Urine 02/25/2025 2:27 AM CDT [employer] ESPINAL POINT OF CARE TEST ORDERABLES Final [...] was last reviewed 2021. Testing performed by: [address] [address] Blood 02/25/2025 2:17 AM CDT 02/25/2025 2:23 AM CDT us Brian Ward ESPINAL LAB BLOOD ORDERABLES Final Res ult [facility] [address] [facility] Department [place] [address] * (ABNORMAL) Differential, auto (02/25/2025 2:17 AM CDT) Neutrophil abs 13.19(H) 1.50 - 6.50 K/cumm Comment:Testing performed by : [address] [address] Imm gran abs 0.09 0.00 - 0.10 K/cumm LAILA Comment:Testing performed by : [address] [address] Lymphocyte abs 1.03 0.80 - 3.30 K/cumm LAILA Comment:Testing performed by : [address] [address] Monocyte abs 0.41 0.20 - 0.80 K/cumm LAILA Comment:Testing performed by : [address] [address] Eosinophil abs 0.04 0.00 - 0.50 K/cumm LAILA Comment:Testing performed by : [address] [address] Basophil abs 0.04 0.00 - 0.10 K/cumm LAILA Comment:Testing performed by : [address] [address] Neutrophil pct 89.0 % LAILA Comment: Interpretive Data Percent cell count reference ranges are not reported, since discordance with absolute values may lead to misinterpretation of CBC data. Current Interpretive Data was last revised on 2017. Testing performed by: [address] [address] Imm gran pct 0.6 % [facility] Comment: Interpretive Data Percent cell count reference ranges are not reported, since discordance with absolute values may lead to misinterpretation of CBC data. Current Interpretive Data was last revised on 2017. Testing performed by: [address] [address] Lymphocyte pct 7.0 % [facility] Comment: Interpretive Data Percent cell count reference ranges are not reported, since discordance with absolute values may lead to misinterpretation of CBC data. Current Interpretive Data was last revised on 2017. Testing performed by: [address] [address] Monocyte pct 2.8 % [facility] Comment: Interpretive Data Percent cell count reference ranges are not reported, since discordance with absolute values may lead to misinterpretation of CBC data. Current Interpretive Data was last revised on 2017. Testing performed by: [address] [address] Eosinophil pct 0.3 % [facility] Comment: Interpretive Data Percent cell count reference ranges are not reported, since discordance with absolute values may lead to misinterpretation of CBC data. Current Interpretive Data was last revised on 2017. Testing performed by: [address] [address] Basophil pct 0.3 % [facility] Comment: Interpretive Data Percent cell count reference ranges are not reported, since discordance with absolute values may lead to misinterpretation of CBC data. Current Interpretive Data was last revised on 2017. Testing performed by: [address] [address] Blood 02/25/2025 2:17 AM CDT 02/25/2025 2:22 AM CDT us Brian Hopper DO LAB BLOOD ORDERABLES Final Res ult LAILA HARMON [address] [facility] Department [place] [address] * (ABNORMAL) Lipase (02/25/2025 2:17 AM CDT) [facility] Lipase 229(H) 10 - 99 Units/L Comment:Testing performed by : [address] [address] Blood 02/25/2025 2:17 AM CDT 02/25/2025 2:23 AM CDT [employer] DO LAB BLOOD ORDERABLES Final Res ult Performing Organization Address [facility] Co de Phone Number [address] [place] [address] * Lactate (02/25/2025 2:17 AM CDT) [facility] Lactate 1.5 0.7 - 2.0 mmol/L Comment:Testing performed by : [address] [address] Blood 02/25/2025 2:17 AM CDT 02/25/2025 2:22 AM CDT Brian Hopper DO LAB BLOOD ORDERABLES Final Res ult Performing Organization Address [facility] de Phone Number [address] [place] [address] * (ABNORMAL) Comprehensive metabolic panel (02/25/2025 2:17 AM CDT) [facility] Sodium 138 135 - 145 mmol/L Comment:Testing performed by : [address] [address] Potassium, pl 3.8 3.3 - 4.9 mmol/L LAILA Comment:Testing performed by : [address] [address] Chloride 101 97 - 110 mmol/L LAILA Comment:Testing performed by : [address] [address] CO2 24 22 - 32 mmol/L LAILA Comment:Testing performed by : [address] [address] Anion gap 13 2 - 15 mmol/L LAILA Comment:Testing performed by : [address] [address] BUN 11 6 - 25 mg/dL LAILA Comment:Testing performed by : [address] [address] Creatinine 0.52(L) 0.60 - 1.10 mg/dL LAILA Comment:Testing performed by : [address] [address] Glucose 124 70 - 199 mg/dL LAILA [...] was last revised 2022. Testing performed by: [address] [address] Calcium 9.2 8.5 - 10.3 mg/dL LAILA Comment:Testing performed by : [address] [address] Bilirubin, total 0.2 0.1 - 1.2 mg/dL LAILA Comment:Testing performed by : [address] [address] Protein, pl 7.1 6.5 - 8.5 g/dL LAILA Comment:Testing performed by : [address] [address] Albumin 4.2 3.5 - 5.0 g/dL LAILA Comment:Testing performed by : [address] [address] Alk phos 52 40 - 130 Units/L LAILA Comment:Testing performed by : [address] [address] ALT 15 7 - 45 Units/L LAILA Comment:Testing performed by : [address] [address] AST 15 10 - 45 Units/L LAILA Comment:Testing performed by : [address] [address] Blood 02/25/2025 2:17 AM CDT 02/25/2025 2:23 AM CDT Brian Hopper DO LAB BLOOD ORDERABLES Final Res ult LAILA [address] [facility] Department [place] [address] * (ABNORMAL) CBC with auto differential (02/25/2025 2:17 AM CDT) WBC 14.80(H) 3.80 - 9.90 K/cumm Comment:Testing performed by : [address] [address] Hgb 12.4 11.9 - 15.5 g/dL LAILA Comment:Testing performed by : [address] [address] Hct 36.5 35.6 - 45.5 % LAILA Comment:Testing performed by : [address] [address] Plt 217 150 - 400 K/cumm LAILA Comment:Testing performed by : [address] [address] MPV 10.5 9.1 - 12.3 fL LAILA Comment:Testing performed by : [address] [address] RBC 4.09 3.90 - 5.20 M/cumm LAILA HARMON Comment:Testing performed by : [address] [address] MCV 89.2 81.3 - 96.4 fL LAILA HARMON Comment:Testing performed by : [address] [address] MCH 30.3 27.1 - 33.3 pg LAILA HARMON Comment:Testing performed by : [address] [address] MCHC 34.0 32.3 - 35.7 g/dL LAILA HARMON Comment:Testing performed by : [address] [address] RDW CV 13.4 11.1 - 14.9 % LAILA HARMON Comment:Testing performed by : [address] [address] RDW SD 43.8 35.7 - 48.1 fL LAILA HARMON Comment:Testing performed by : [address] [address] NRBC abs 0.00 0.00 - 0.01 K/cumm LAILA HARMON Comment:Testing performed by : [address] [address] Blood 02/25/2025 2:17 AM CDT 02/25/2025 2:22 AM CDT Brian Hopper DO LAB BLOOD ORDERABLES Final Res ult Performing Organization Address [facility] Co de Phone Number LAILA [address] [place] [address] * POCT glucose (02/25/2025 2:03 AM CDT) [facility] Signature Glucose, POC 118 70 - 199 mg/dL Comment:Testing performed by : [address] [address] Blood 02/25/2025 2:03 AM CDT 02/25/2025 2:03 AM CDT us [employer] Unknown LAB POCT ORDERABLES - DEVICE F inal Result Performing Organization Address City/[facility] Co de Phone Number LAILA [facility] [place] [address] documented in this encounter Visit Diagnoses Diagnosis [...] 02/25/2025 documented in this encounter Care Teams Structural Metal Fabricator Apprentice Relationship Specialty Start Date End Date Tucker Jackson MD [address] [place] [id number] PCP - General Emergency Medicine 12/27/24 documented as of this encounter
[2025-02-25 21:00] VITALS: BP 100/67; PULSE 62; RESP 20; O2SAT 100
[2025-02-25] MEDS: SODIUM CHLORIDE 0.9% IV 1,000 ML 999 ML IV CONT (21:34)
[2025-02-25] MEDS: METOCLOPRAMIDE HCL INJ 10 MG/2 ML VIAL 5 MG IV PUSH (21:34)
[2025-02-25] MEDS: diphenhydrAMINE HCl INJ 50 MG/ML VIAL 25 MG IV PUSH (21:34)
--- NOTE | 2025-02-25 21:34 | PC.NURSE ---
Pt asked to provided urine sample by this RN. Pt reports she would not be able to go at this time.
--- NOTE | 2025-02-25 21:35 | ED_ITS ---
HPI - Abdominal Pain General Chief Complaint: Abdominal Pain Stated Complaint: abd pain Time Seen by Provider: 02/25/25 20:25 History of Present Illness HPI narrative: 29-year-old female with history of seizure disorder not on any antiepileptic medications but follows with Neurology outpatient presenting to the emergency department with lower abdominal pain. She states she was diagnosed with pancreatitis by another facility yesterday after having nausea vomiting but she was also told she was incidentally . She was not aware of this but has had in a regular cycle recently. No vaginal bleeding or discharge. Endorses malaise and feeling unwell as well as nauseous and feeling like she vomited multiple times. She states she has had recent focal seizures but not followed up with Neurology yet. She has not tolerated her antiepileptic medications previously so her neurologist this trying to find some other options for her. Patient went to outside hospital yesterday where they did laboratory studies and treat her with Zofran. She was discharged home and told that if she had worsening nausea to go the hospital. Patient denies any trauma or injury, vaginal bleeding. Related Data Allergies Allergy/AdvReac Type Severity Reaction Status Date / Time alprazolam Allergy Unknown Siezure Verified 12/18/16 17:17 citalopram Allergy Unknown Siezure Verified 12/18/16 17:17 levetiracetam Allergy Unknown Siezure Verified 12/18/16 17:17 Review of Systems 2 Review of Systems: As reviewed above in HPI Exam 2 Narrative: GENERAL: [Well-appearing, well-nourished, and in no acute distress.] HEAD: [Normocephalic, atraumatic.] EYES: [PERRLA and EOMI.] ENT: Nares clear, no rhinorrhea or epistaxis. Mucous membranes moist. NECK: Supple. CHEST: [Clear to auscultation. No respiratory distress.] HEART: [Regular rate and rhythm]. No murmur heard. [Normal peripheral pulses.] ABDOMEN: [Soft, nondistended], [nontender], [No rigidity or guarding] EXTREMITIES: Normal range of motion. [No edema.] SKIN: Warm, dry, no rash. NEURO: [No focal deficits]. Alert and oriented [x3.] PSYCH: [Normal mood and affect.] Course Vital Signs Vital signs: Vital Signs Temperature 36.4 C L 02/25/25 19:45 Pulse Rate 74 06/18/25 19:45 Respiratory Rate 17 02/25/25 19:45 Blood Pressure 125/81 02/25/25 19:45 Pulse Oximetry 100 02/25/25 19:45 Oxygen Delivery Room Air 02/25/25 19:45 Temperature 36.4 C L 02/25/25 19:45 Pulse Rate 78 02/26/25 00:37 Respiratory Rate 14 02/26/25 00:37 Blood Pressure 105/68 02/26/25 00:37 Pulse Oximetry 100 02/26/25 00:37 Oxygen Delivery Room Air 02/25/25 19:45 MDM - Abdominal Pain MDM Narrative Medical decision making narrative: 29-year-old female with history of seizures presenting to the emergency department with abdominal pain, positive test, recent diagnosis of pancreatitis from hospital yesterday. Patient states that she was not feeling any better so she came to this hospital. She has a history of seizure disorder but not on any antiepileptic medications and working with her neurologist to find a medication or regimen that will work for her. Endorsed abdominal pain and nauseousness. Was told that she was but not sure how long she was and did not receive any imaging for this. She has a soft nontender nondistended abdomen, normal vital signs with any fever, hypoxia, blood pressure concerns, tachypnea. Patient has had previous pregnancies and similar symptoms in early but she states this is worse. Differential includes nausea vomiting in , ectopic , miscarriage, low suspicion intra-abdominal process such as appendicitis, cholecystitis. She was told she had pancreatitis yesterday after she had a mildly elevated lipase level. Will re-evaluate today. She is given fluids, Reglan and Benadryl for antiemetics and monitored. Patient's workup shows a slight leukocytosis of 13.2, hemoglobin 11.9, platelet count of 203. Compared to previous my chart these are unchanged from yesterday which is reassuring. Patient's electrolytes are unremarkable, normal creatinine, normal LFTs, normal lipase, negative lactic acid. Beta hCG elevated consistent with . Ultrasound was ordered this time for further evaluation of the abdomen and pelvis and location of the . Urinalysis negative for infection. Ultrasound shows single live IUP with heart rate approximately 10 weeks 4 days. Patient felt significantly better after the antiemetics and given her unremarkable workup and likely source being the nausea vomiting of she can follow-up with an OBGYN outpatient and given return precautions. Patient will be sent home with Reglan as needed for nausea vomiting. Medical Records Attestation: I reviewed the patient's medical records. Lab Data Attestation: I reviewed the patient's lab results. 02/25/25 20:07 02/25/25 20:07 Labs: Lab Results 02/25/25 02/25/25 02/25/25 Range/Units 20:06 20:07 22:20 WBC 13.2 H (4.5-10.0) K/mm3 RBC 3.87 L (4.2-5.4) M/mm3 Hgb 11.9 L (12.0-15.0) g/dL Hct 35.8 L (37.0-47.0) % MCV 92.5 (80-100) fl MCH 30.7 (26-34) pg MCHC 33.2 (32-36) g/dl RDW 13.9 (11.5-14.5) % Plt Count 203 (150-375) k/mm3 MPV 10.3 (7.4-10.4) fl Immature Gran % (Auto) 0.5 (0-0.5) % Neut % (Auto) 76.2 H (45.5-73.1) % Lymph % (Auto) 17.0 L (18.3-44.2) % [place] % (Auto) 5.5 (2.6-8.5) % Eos % (Auto) 0.6 (0-4.4) % Baso % (Auto) 0.2 (0.2-1.2) % Lymph # (Auto) 2.25 (0.9-3.2) K/mm3 Harrison # (Auto) 0.7 H (0.1-0.6) K/mm3 Eos # (Auto) 0.1 (0-0.3) K/mm3 Baso # (Auto) 0.0 (0.0-0.1) K/mm3 Abs Immat Gran (auto) 0.06 H (0.00-0.031) K/mm3 Absolute Neuts (auto) 10.1 H (1.3-6.7) K/mm3 Absolute Nucleated RBC 0.000 (0.0-0.012) K/mm3 Nucleated RBC % 0.0 (0.0-0.2) % Sodium 134 L (137-145) mmol/L Potassium 3.9 (3.4-5.0) mmol/L Chloride 105 (98-107) mmol/L Carbon Dioxide 23 (22-30) mmol/L Anion Gap 6 (4-12) mmol/L BUN 8 D (7-17) mg/dL Creatinine 0.50 L (0.7-1.0) mg/dL Estim Creat Clear Calc 115 ml/min Estimated GFR > 60 (59 - ) Glucose 89 (65-110) mg/dL Lactic Acid 0.9 (0.7-2.0) mmol/L Calcium 9.1 (8.4-10.2) mg/dL Total Bilirubin 0.5 (0.2-1.3) mg/dL AST 25 (14-36) U/L ALT 17 (6-35) U/L Alkaline Phosphatase 47 (38-126) U/L Total Protein 7.1 (6.3-8.2) g/dL Albumin 4.0 (3.5-5.1) g/dL Lipase 36 (23-300) U/L Beta HCG, Quant 138943.00 mIU/ML Urine Color Dark yellow (Yellow) Urine Appearance Turbid H (Clear) Urine pH 7.5 (5.0-9.0) Ur Specific [place] 1.018 (1.001-1.035) Urine Protein 1+ H (Negative) mg/dL Urine Glucose (UA) Negative (Negative) mg/dL Urine Ketones 3+ H (Negative) mg/dL Ur Blood (Man) Negative (Negative) Urine Nitrate Negative (Negative) Urine Bilirubin Negative (Negative) Urine Urobilinogen 1.0 (<2.0) mg/dL Leukocyte Esterase Rfl Trace H (Negative) JYOTSNA/UL Urine RBC 0-2 (0-2) /hpf Urine WBC 0-5 (0-3) /hpf Ur Squamous Epith Cells Occasional (Few) /hpf Urine Bacteria Rare /hpf Urine Casts 0-2 POC Urine HCG, Qual (Negative) 02/25/25 Range/Units 22:23 WBC (4.5-10.0) K/mm3 RBC (4.2-5.4) M/mm3 Hgb (12.0-15.0) g/dL Hct (37.0-47.0) % MCV (80-100) fl MCH (26-34) pg MCHC (32-36) g/dl RDW (11.5-14.5) % Plt Count (150-375) k/mm3 MPV (7.4-10.4) fl Immature Gran % (Auto) (0-0.5) % Neut % (Auto) (45.5-73.1) % Lymph % (Auto) (18.3-44.2) % Harrison % (Auto) (2.6-8.5) % Eos % (Auto) (0-4.4) % Baso % (Auto) (0.2-1.2) % Lymph # (Auto) (0.9-3.2) K/mm3 [place] # (Auto) (0.1-0.6) K/mm3 Eos # (Auto) (0-0.3) K/mm3 Baso # (Auto) (0.0-0.1) K/mm3 Abs Immat Gran (auto) (0.00-0.031) K/mm3 Absolute Neuts (auto) (1.3-6.7) K/mm3 Absolute Nucleated RBC (0.0-0.012) K/mm3 Nucleated RBC % (0.0-0.2) % Sodium (137-145) mmol/L Potassium (3.4-5.0) mmol/L Chloride (98-107) mmol/L Carbon Dioxide (22-30) mmol/L Anion Gap (4-12) mmol/L BUN (7-17) mg/dL Creatinine (0.7-1.0) mg/dL Estim Creat Clear Calc ml/min Estimated GFR (59 - ) Glucose (65-110) mg/dL Lactic Acid (0.7-2.0) mmol/L Calcium (8.4-10.2) mg/dL Total Bilirubin (0.2-1.3) mg/dL AST (14-36) U/L ALT (6-35) U/L Alkaline Phosphatase (38-126) U/L Total Protein (6.3-8.2) g/dL Albumin (3.5-5.1) g/dL Lipase (23-300) U/L Beta HCG, Quant mIU/ML Urine Color (Yellow) Urine Appearance (Clear) Urine pH (5.0-9.0) Ur Specific [place] (1.001-1.035) Urine Protein (Negative) mg/dL Urine Glucose (UA) (Negative) mg/dL Urine Ketones (Negative) mg/dL Ur Blood (Man) (Negative) Urine Nitrate (Negative) Urine Bilirubin (Negative) Urine Urobilinogen (<2.0) mg/dL Leukocyte Esterase Rfl (Negative) JYOTSNA/UL Urine RBC (0-2) /hpf Urine WBC (0-3) /hpf Ur Squamous Epith Cells (Few) /hpf Urine Bacteria /hpf Urine Casts POC Urine HCG, Qual Positive (Negative) Imaging Data Attestation: I personally reviewed and interpreted this imaging study as follows: My impression: Impressions Ultrasound 02/25/25 21:38 IMPRESSION: Single intrauterine gestation with an approximate gestational age of 10 weeks and 4 days, with cardiac activity identified. Radiologist's impression: ITS Impressions Ultrasound 02/25/25 21:38 IMPRESSION: Single intrauterine gestation with an approximate gestational age of 10 weeks and 4 days, with cardiac activity identified. Discharge Plan Discharge Clinical Impression: Nausea and vomiting during , First trimester Patient Disposition: Home Condition: Stable Instructions: Antibiotic Form, Nausea and Vomiting in (ED) Additional Instructions: Your ultrasound shows a live intrauterine approximately 10 weeks and 4 days with heart activity. Your symptoms are consistent with nausea and vomiting during and we can treat this with strong antiemetic medications that will discharge home with. Your laboratory studies otherwise are reassuring and no signs of pancreatitis. Your white count is mildly elevated but likely reactive from the nauseousness. No signs of infection in your urine or other concerning labs. Follow-up with an OBGYN outpatient, return with any emergent concerns. Patient Language: Malay Prescriptions: New diphenhydramine HCl [Allergy (diphenhydramine)] 25 mg capsule 25 mg PO TID PRN (Reason: nausea and vomiting) Qty: 20 0RF metoclopramide HCl [Reglan] 5 mg tablet 5 mg PO Q8H PRN (Reason: nausea and vomiting) Qty: 14 0RF Follow-up/Referrals: Andi Lloyd MD [Physician] - 1 Week ([facility] care, new ) Laura,TYSON Rabago [Primary Care Provider] - Time of Disposition: 23:38
[2025-02-25 21:36] VITALS: BP 118/71; PULSE 62; RESP 17; O2SAT 99
[2025-02-25 22:00] VITALS: BP 105/68; PULSE 78; RESP 17; O2SAT 100
[2025-02-25 22:25] LABS: BEDSIDEPREGUCG Positive (Negative)
[2025-02-25 22:53] LABS: Add Urine Microscopic? YES; Appearance Urine Turbid (Clear); Bacteria Urine Rare /hpf; Bilirubin Urine Negative (Negative); Blood Urine Negative (Negative); Color Urine Dark Yellow (Yellow); Glucose Urine UA Negative (Negative); Ketones Urine 3+ mg/dL (Negative); Leukocyte Esterase Ur Trace LEU/UL (Negative); Nitrate Urine Negative (Negative); Non Pathogenic Casts 0-2; Protein Urine 1+ mg/dL (Negative); RBC Urine 0-2 /hpf (0-2); Specific Grav Ur 1.018 (1.001-1.035); Squamous Epithelial Cell Urine Occasional /hpf (Few); WBC Urine 0-5 /hpf (0-3); pH Urine 7.5 (5.0-9.0)
[2025-02-26 00:37] VITALS: BP 105/68; PULSE 78; RESP 14; O2SAT 100
== END 2025-02-26 00:38 | disposition home or self-care (01) ==
PROVIDERS: Emergency Provider Student in an Organized Health Care Education/Training Program; PCP Registered Nurse
DX: O21.9 Vomiting of pregnancy, unspecified (principal); O99.351 Diseases of the nervous system complicating pregnancy, first trimester; G40.909 Epilepsy, unspecified, not intractable, without status epilepticus; Z3A.10 10 weeks gestation of pregnancy
CPT/HCPCS: 36415; 76801; 80053; 81001; 81025; 83605; 83690; 84702; 85025; 96361; 96374; 96375; 99284; J1200; J2765; J7030